=== PATIENT | male | born 1965 | race Caucasian/White ===

== ENCOUNTER 2016-09-30 00:59 | Inpatient (IN) ==
[2016-09-30] MEDS ORDERED: DUONEB (A & A) INH ONE ×2 (01:13→06:28)
[2016-09-30] MEDS ORDERED: ASPIRIN PO ONE (01:15)
[2016-09-30 02:03] LABS: MANUAL DIFF NEEDED? NO
[2016-09-30 02:06] LABS: BASO% 0.6 % (0.0-0.8); EOS# 0.23 X1000 (0.0-0.7); EOS% 2.6 % (0.0-10.0); HEMATOCRIT 37.7 % (42.0-52.0); HEMOGLOBIN 12.9 g/dL (14.0-18.0); IMM GRAN# 0.11 X1000 (0.0-0.04); IMM GRAN% 1.2 % (0.0-0.5); LYMPH# 0.86 X1000 (1.2-3.4); LYMPH% 9.7 % (20.5-51.1); MCH 31.2 PG (27-31); MCHC 34.2 g/dL (33-37); MCV 91.3 FL (81-99); MONO# 0.15 X1000 (0.11-0.59); MONO% 1.7 % (1.7-9.3); MPV 10.8 FL (7.4-10.4); NEUT% 84.2 % (42.2-75.2); PLT 268 X1000 (130-400); RBC 4.13 XMIL (4.7-6.1)
[2016-09-30 02:26] LABS: ALBUMIN 3.5 g/dL (3.5-5.0); CALCIUM 8.4 mg/dL (8.8-10.2); POTASSIUM 4.7 mmol/L (3.5-5.1); TOTAL BILIRUBIN 0.23 mg/dL (0.20-1.00); TOTAL PROTEIN 7.3 g/dL (6.3-8.3)
[2016-09-30] MEDS ORDERED: HUMALOG SUBQ ONE (02:39)
--- NOTE | 2016-09-30 02:42 | PROVIDER DOCUMENTATION ---
This chart was entered by Gill Bolaños Scribe, acting as scribe for Nathanael Stanley MD. HPI-General Adult - General Chief Complaint: General Adult Stated Complaint: "JUST DOESN'T FEEL WELL" Time Seen by Provider: 09/30/16 01:08 Source: patient Allergies/Adverse Reactions: Patient Allergies Allergy/AdvReac Type Severity Reaction Status Date / Time Penicillins Allergy Mild HIVES Verified 09/30/16 01:10 Sulfa (Sulfonamide Allergy Mild HIVES Verified 09/30/16 01:10 Antibiotics) [Sulfa(Sulfonamide Antibiotics)] Home Medications: Home Medication List Medication Instructions Recorded Confirmed Last Taken Type Albuterol Sulfate [Albuterol 1 - 2 puff IH 3-4XDAY PRN PRN #1 06/25/14 08/24/16 Unknown Rx Sulfate Hfa] [email or web address] Clonidine HCl 0.2 mg PO Q6-8H PRN PRN #60 tablet 06/25/14 08/24/16 08/20/14 12: 00 Rx Lisinopril/Hydrochlorothiazide 1 each PO DAILY #30 tablet 06/25/14 08/24/16 09:00 Rx [Lisinopril-Hctz 10-12.5 mg Tab] Nitroglycerin [Nitroglycerin 0.2 1 each TD DAILY #30 patch.td24 06/25/14 Unknown Rx mg/Hr] Hydrocodone/Acetaminophen [[place] 1 each PO Q4-6H PRN PRN #20 tablet 08/21/14 Unknown Rx 5-325 Tablet] Gabapentin 300 mg PO TID #90 capsule 08/24/16 Unknown Rx Lisinopril/Hydrochlorothiazide 1 each PO DAILY #30 tablet 08/24/16 Unknown Rx [Lisinopril-Hctz 20-12.5 mg Tab] Metformin [Glucophage] 500 mg PO BID CC #60 tablet 08/24/16 Unknown Rx - History of Present Illness -Gen Adult Nature of Presenting Problems: 50 year old M presents to the ED with a cc of pain in chest with coughing and breathing, pain in his buttocks, and pain in his penile area. Location of Pain/Injury: reports: chest, genitalia, other (buttocks) Quality of Pain: reports: aching Severity: reports: mild Onset/Duration: reports: unsure Timing: reports: still present Modifying Factors: worse with: breathing, coughing Associated Symptoms: reports: chest pain, cough Similar Symptoms Previously?: No Recently seen or treated by another doctor?: No Review of Systems - Adult - REVIEW OF SYSTEMS - ADULT Constitutional: denies: chills, fever Eyes: reports: no symptoms reported Ears, Nose, Mouth & Throat: reports: no symptoms reported Cardiovascular: reports: chest pain. denies: palpitations Respiratory: reports: cough. denies: shortness of breath Gastrointestinal: denies: abdominal pain, nausea, vomiting Genitourinary: denies: dysuria, hematuria Musculoskeletal: denies: bone pain, muscle aches, muscle weakness Integumentary: denies: skin sores/ulcer, skin thickening Neurological: reports: no symptoms reported Psychiatric: reports: no symptoms reported Endocrine: reports: no symptoms reported Hematologic/Lymphatic: reports: no symptoms reported Allergic/Immunologic: reports: no symptoms reported All Other Systems: Reviewed and Negative Past History - Adult - PAST MEDICAL HISTORY-ADULT Review of Records: reports: Nursing Assessment Review, Medications Reviewed Major Childhood Illnesses: reports: denies history Cardiovascular: reports: CHF, HTN, MA Respiratory: reports: COPD Gastrointestinal: reports: denies history Obstetrical/Gynecological: reports: denies history Genitourinary: reports: denies history Musculoskeletal: reports: denies history Neurological: reports: denies history Psychiatric: reports: anxiety Endocrine/Immune: reports: Diabetes Other Conditions: reports: denies history - PRIOR SURGERIES/PROCEDURES Surgical/Procedure History: reports: orthopedic (extremity) (right clavical), other (cervical spine, lumbar spine, colon rescection) - IMMUNIZATION STATUS Childhood Immunizations: See Nurse Assessment Flu Vaccine: See Nurse Assessment - FAMILY HISTORY Family History: reviewed, not pertinent - SOCIAL HISTORY Smoking: cigarettes Provider spent 3-5 mins advising pt. on dangers of tobacco.: Discussed manners to quit use, and f/u contacts for add'l counseling. Substance Use: none/never Alcohol Use Frequency: never Physical Exam-General - PHYSICAL EXAM-ADULT Initial Vital Signs Reviewed: Yes - CONSTITUTIONAL General Appearance: appears well, alert, no apparent distress, obese - RESPIRATORY Respiratory: wheezing - CARDIOVASCULAR Cardiovascular: normal peripheral pulses, regular rate, rhythm, no edema - GASTROINTESTINAL (ABDOMEN) Abdominal Exam: normal bowel sounds, non tender, soft - MUSCULOSKELETAL Back Exam: normal inspection, no CVA tenderness, no vertebral tenderness - SKIN Integumentary: normal color, normal turgor, warm/dry - PSYCHIATRIC Psych/Mental Status: normal mood/affect, normal thought content, normal thought process, oriented x 3 Progress - PLAN OF CARE/RESULTS Progress/Plan/Lab Results: Vital Signs - 8 hr 09/30/16 01:04 Temperature 98.4 F Pulse Rate 107 H Respiratory Rate 18 Blood Pressure 110/59 O2 Sat by Pulse Oximetry 92 L Result Diagrams: 09/30/16 01:54 09/30/16 01:54 - REASSESSMENT Reassessment #1 Time Reassessed: 02:40 (when confronted with his elevated glucose he admitted that he did not take his metformin tonight, even though he insists he has some! ) Status: unchanged Reassessment #2 Time Reassessed: 05:47 (2 hours after his 20 units of Humalog is glucose is still greather than 500) Status: unchanged - EKG 1 Time of EKG reading by physician:: 02:12 EKG Read and Signed by:: Nathanael Stanley EKG Interpretation (*Must complete 3 of following elements*): Normal Rate: 114 Rhythm: sinus tachycardia [place]: normal - XRAY 1 XRAY Study: Chest Impression: Normal XRAY Interpretation: normal: Dr. Stanley(ER MD) Departure - Departure Date of Disposition Decision: 09/30/16 Time of Disposition Decision: 05:48 DIAGNOSIS: Hyperglycemia, Non compliance w medication regimen Disposition: ADMITTED INPATIENT 09 Certified Medical Emergency: Emergent Condition: Fair Referrals and Follow-Ups: None,PCP [Primary Care Provider] - - Critical Care Note This patient required my direct & personal management of CC.: No This chart was documented by the indicated scribe, (Gill Bolaños Scribe) and accurately reflects the services I performed and decisions made by me, Nathanael Stanley MD, as attested by the provider's signature.
[2016-09-30] MEDS ORDERED: GLUCOPHAGE PO ONE (04:41)
[2016-09-30] MEDS ORDERED: VALIUM PO ONE (05:03)
--- NOTE | 2016-09-30 05:22 | EKG Report ---
Test Performed on : 09/30/2016 02:12:03 AM Test Reason : cp Blood Pressure : / mmHG Vent. Rate : 114 BPM Atrial Rate : 114 BPM P-R Int : 154 ms QRS Dur : 098 ms QT Int : 344 ms P-R-T Axes : 009 048 012 degrees QTc Int : 474 ms Sinus tachycardia. Otherwise normal ECG When compared with ECG of 25-JUN-2014 20:45, No significant change was found Unconfirmed Result
[2016-09-30] MEDS ORDERED: NS 1,000 ML IV ONE (05:43)
--- NOTE | 2016-09-30 06:21 | Diag Imaging Result Doc PS360 ---
EXAM: CHEST-PORTABLE HISTORY: cough TECHNIQUE: COMPARISON: 07/08/2014 FINDINGS: The lungs are well expanded. The heart is not enlarged. The vessels are not distended. No pleural effusions identified. There has been prior surgery to the lower neck and right clavicle. There are several old right rib fractures. No consolidation. IMPRESSION: No pneumonia. Follow-up films may be beneficial. Electronically signed by Thiago Dhaliwal 09/30/2016 6:18 AM
[2016-09-30 06:55] LABS: ALLEN TEST YES; BE -1.3 mmoll (-3.0-3.0); BLOOD TYPE ARTERIAL; DRAW SITE R RADIAL; METHB 0.8 % (0.0-1.5); O2(CT) 16.3 mL/dL (15.0-23.0); PCO2(98.6) 49 mmHg (35-45); PO2(98.6) 86 mmHg (60-100); SAMPLE BLOOD; SAO2 99.1 % (95.0-100.0); THB 12.2 g/dL (11.5-17.4); pH(98.6) 7.32 (7.35-7.45)
[2016-09-30 06:56] LABS: MODALITY CANNULA
[2016-09-30] MEDS: HUMULIN R 100 UNIT in NS 100 ML IV SCH ×2 (06:57→14:10)
--- NOTE | 2016-09-30 07:26 | HISTORY AND PHYSICAL ---
CHIEF COMPLAINT: Was not feeling well and hyperglycemia. Briefly, this is a homeless gentleman with a history of diabetes. Reportedly is suppose to be on metformin but has not been on metformin. He reports that he takes metformin but has not been. He came in and blood sugar was over 700 when he came in. He was tachycardic, a little hypoxic as well, and initially attempted to control it in the ER. He was given 20 units of lispro. He was given a gram of metformin. Initially it came down to below 450, and now it went back to above 500. Workup in the ER is consistent with hyperglycemia. He is non-ketotic and there is no diabetic ketoacidosis at this point. PAST MEDICAL HISTORY: 1. Reportedly diabetes. 2. Hypertension. 3. Chronic obstructive pulmonary disease. 4. Reported heart failure. 5. Noncompliance. PAST SURGICAL HISTORY: Denies. SOCIAL HISTORY: He does smoke up to a pack a day. He has done that for 20 years. No alcohol. No drugs. ALLERGIES: Penicillins and sulfa. REVIEW OF SYSTEMS: Positive for polydipsia, polyuria, polyphagia. The patient does not report any weight changes. Does report some chest pain though and shortness of breath. All other systems reviewed and are negative. PHYSICAL EXAMINATION: VITAL SIGNS: Blood pressure 110/59, respiratory 23, temp was 95 degrees, 93 on 4 L. GENERAL EXAMINATION: A well-developed male, in no acute distress. Some mild respiratory distress. HEAD EXAMINATION: Normocephalic, atraumatic. EYE EXAMINATION: Pupils equal, round, reactive to light. Extraocular movements were intact. EAR/NOSE/THROAT EXAMINATION: Had moist mucous membranes. NECK EXAMINATION: Supple. CARDIOVASCULAR EXAMINATION: Regular rate and rhythm. No murmurs, gallops, or rubs. PULMONARY EXAMINATION: Bilateral breath sounds. Clear to auscultation. GASTROINTESTINAL: Soft, nontender, nondistended. Bowel sounds are positive. EXTREMITIES: No clubbing or cyanosis. LYMPHATICS: No peripheral edema. NEUROLOGICAL EXAMINATION: Nonfocal. SKIN EXAMINATION: He had multiple plaques on his extensor surfaces. LABORATORY DATA: White count 8. Hemoglobin and hematocrit 12 and 37. Platelets 268,000. Sodium 123, but his glucose was 710. Carbon dioxide 24. Pro-B-type natriuretic peptide 342. Chest x- ray was reportedly clear. PROBLEM LIST: This is a 50-year-old male presenting with uncontrolled diabetes. Not in diabetic ketoacidosis. Not quite nonketotic. Chronic obstructive pulmonary disease exacerbation. 1. Diabetes, uncontrolled. I am going to go ahead and institute an insulin drip just because he is persistently hyperglycemic, at least until we can get it under a little bit better control. I do not think metformin is going to be sufficient enough to control his medications. We will follow. We will gently hydrate because of his history of heart failure. 2. Chronic obstructive pulmonary disease exacerbation. We will continue breathing treatments. At this point there is no evidence of infection. Steroids may be beneficial , but he still hyperglycemic. I think were going to try and just use the breathing treatments and follow clinically. 3. Congestive heart failure. We will need to re-evaluate that. I am going to go through his records and see if he has had an echo's recently; otherwise, we will repeat that and just get a baseline level of function. DISPOSITION: Will be difficult, as he is not compliant with his medications and he is limited resource. We will try to avoid using held patient insulin because it will be difficult to manage in his current social situation, but we will have to adjust his medications accordingly. cc: Andriy Ramirez MD MTDD
[2016-09-30 07:52] LABS: HEMOGLOBIN A1C 14.5 % (4.8-6.0)
[2016-09-30] MEDS ORDERED: ZOFRAN IV PRN ×2 (08:03→09:09)
[2016-09-30] MEDS ORDERED: HUMALOG SUBQ SCH (08:03)
[2016-09-30] MEDS ORDERED: ATIVAN IV PRN (08:19)
[2016-09-30] MEDS ORDERED: TYLENOL PR PRN (09:09)
[2016-09-30] MEDS ORDERED: MAGNESIUM SULFATE 2 GM/S.W.I. 2 GM/50 ML IVPB IV PRN (09:09)
[2016-09-30] MEDS: NS 1,000 ML IV SCH ×2 (10:02→17:12)
[2016-09-30] MEDS: LOVENOX SUBQ SCH (10:02)
[2016-09-30] MEDS: PRILOSEC PO SCH (10:04)
[2016-09-30 10:11] LABS: ALBUMIN 3.4 g/dL (3.5-5.0); CALCIUM 8.7 mg/dL (8.8-10.2); POTASSIUM 4.3 mmol/L (3.5-5.1)
[2016-09-30 11:45] LABS: URINE MICRO REVIEW NEEDED? NO; URINE SOURCE CATH
[2016-09-30 11:50] LABS: BILIRUBIN URINE NEGATIVE (NEGATIVE); BLOOD URINE NEGATIVE (NEGATIVE); COLOR YELLOW; GLUCOSE URINE >1000 mg/dL (NEGATIVE); LEUKOCYTES URINE MODERATE (NEGATIVE); NITRITE URINE POSITIVE (NEGATIVE); PH URINE 5.5; PROTEIN URINE NEGATIVE (NEGATIVE); SP GRAVITY URINE 1.022; TURBIDITY URINE HAZY (CLEAR); UR EPITHELIAL CELLS <10 /HPF (<10); URINE BACTERIA 4+ /HPF; URINE CULTURE NEEDED? YES; URINE RBC <10 /HPF (<10); URINE WBC TNTC /HPF (<10); UROBILINOGEN URINE NORMAL (NORMAL)
[2016-09-30] MEDS: DILAUDID IV PRN ×2 (12:40→22:26)
[2016-09-30 12:54] LABS: CALCIUM 8.6 mg/dL (8.8-10.2); MAGNESIUM 2.2 mg/dL (1.5-2.7); POTASSIUM 4.1 mmol/L (3.5-5.1)
[2016-09-30] MEDS: ROCEPHIN 1 GM/NS 1 GM/50 ML IVPB IV SCH (13:00)
[2016-09-30 13:35] LABS: ALLEN TEST YES; BE 2.3 mmoll (-3.0-3.0); BLOOD TYPE ARTERIAL; DRAW SITE L RADIAL; O2(CT) 14.4 mL/dL (15.0-23.0); PCO2(98.6) 49 mmHg (35-45); SAMPLE BLOOD; SAO2 86.5 % (95.0-100.0); THB 12.3 g/dL (11.5-17.4); pH(98.6) 7.37 (7.35-7.45)
[2016-09-30 13:39] LABS: MODALITY ROOM AIR; PO2(98.6) 45 mmHg (60-100)
[2016-09-30] MEDS ORDERED: CALMOSEPTINE OINTMENT MISC ONE (14:27)
[2016-09-30] MEDS ORDERED: CALMOSEPTINE OINTMENT MISC PRN (14:39)
[2016-09-30] MEDS ORDERED: LEVEMIR SUBQ ONE (17:15)
--- NOTE | 2016-09-30 20:58 | ECHO REPORT ---
ORDER DATE: 09/30/2016 SUMMARY: 1. Technically difficult study due to limited acoustic window quality. 2. Aortic valve was trileaflet and opens normally on 2-dimensional images. Mitral, tricuspid, and pulmonic valves are without structural abnormality. Aortic root is normal in size. 3. Normal left ventricular dimensions suggested on 2-dimensional images. Estimated left ejection fraction appears to be at least 70%. No regional wall motion abnormalities are evident. Left atrium is mildly enlarged. Right atrium and right ventricle are normal in size with normal right ventricular systolic function. 4. No pericardial effusion. 5. Appearance of inferior vena cava suggests normal central venous pressure. CONCLUSIONS: 1. Technically difficult study. 2. No significant valvular abnormality. 3. Estimated left ejection fraction of at least 70% without wall motion abnormality evident. 4. Mild left atrial enlargement. cc: MD Andriy Buchanan MD
[2016-09-30] MEDS: HUMALOG SUBQ SCH ×2 (22:20→22:35)
[2016-09-30] MEDS: TYLENOL PO PRN (22:26)
[2016-10-01] MEDS: HUMALOG SUBQ SCH ×4 (01:38→13:39)
[2016-10-01] MEDS: NS 1,000 ML IV SCH ×3 (01:39→11:16)
[2016-10-01] MEDS: TYLENOL PO PRN ×3 (04:41→23:31)
[2016-10-01 05:36] LABS: HEMATOCRIT 38.7 % (42.0-52.0); HEMOGLOBIN 12.8 g/dL (14.0-18.0); MCHC 33.1 g/dL (33-37); MCV 93.7 FL (81-99); MPV 10.9 FL (7.4-10.4); RBC 4.13 XMIL (4.7-6.1)
[2016-10-01 05:55] LABS: AGAP 11; BUN 29 mg/dL (8-22); CALCIUM 8.5 mg/dL (8.8-10.2); CHLORIDE 97 mmol/L (98-107); COSMO 290; POTASSIUM 4.1 mmol/L (3.5-5.1); SODIUM 137 mmol/L (136-145); TCO2 29 mmol/L (25-35)
[2016-10-01 06:16] LABS: MAGNESIUM 2.1 mg/dL (1.5-2.7)
[2016-10-01] MEDS: PRILOSEC PO SCH (06:16)
[2016-10-01] MEDS: DILAUDID IV PRN ×2 (07:29→20:02)
--- NOTE | 2016-10-01 08:41 | Diag Imaging Result Doc PS360 ---
EXAM: CHEST-PORTABLE INDICATION: dyspnea TECHNIQUE: One view COMPARISON: 09/30/2016 FINDINGS: The lungs appear to be grossly clear. There are no new consolidations identified. Cardiac silhouette is stable. IMPRESSION: Stable chest. Electronically signed by Kush Soto 10/01/2016 8:39 AM
[2016-10-01] MEDS ORDERED: LEVEMIR SUBQ SCH ×2 (09:00)
[2016-10-01] MEDS ORDERED: INSULIN PEN NEEDLES ONE (09:29)
[2016-10-01] MEDS: MERREM 500 MG in NS 50 ML IV SCH ×2 (09:33→16:12)
[2016-10-01] MEDS: ROCEPHIN 1 GM/NS 1 GM/50 ML IVPB IV SCH (11:16)
[2016-10-01] MEDS: LOVENOX SUBQ SCH (11:59)
[2016-10-01] MEDS: HUMULIN R SUBQ SCH ×2 (16:11→20:03)
--- NOTE | 2016-10-01 17:38 | OPERATIVE NOTE ---
PROCEDURE DATE: 10/01/2016 PREOPERATIVE DIAGNOSIS: Left gluteal decubitus ulcer with infection. POSTOPERATIVE DIAGNOSIS: Left gluteal decubitus ulcer with infection. PROCEDURE: Debridement of skin, subcutaneous tissue less than 20 square cm of left buttocks nonhealing wound. SURGEON: Jarocho Machado MD. ESTIMATED BLOOD LOSS: 3 mL. COMPLICATIONS: None apparent. FINDINGS: The wound had necrotic slough of the superficial skin and soft tissues. It measured approximately 2 cm x 101/2 cm. There is no deep abscess appreciated. TECHNIQUE: He was rolled on his right side. The wound was cleansed with Betadine. A 15 blade was used to sharply excise the necrotic tissue and slough down to healthier bleeding edges in the base. The wound was cleansed with a Vashe wound cleanser and covered with gauze. There are no apparent complications. He tolerated this well. Of note, I did inspect his left groin. There is an area of induration with an open small draining spot that now has no fluctuance remaining and no significant drainage. We will keep an eye on this for possible future I and D if needed. cc: Jarocho Machado MD
[2016-10-01] MEDS: LEVEMIR SUBQ SCH (20:03)
[2016-10-02] MEDS: MERREM 500 MG in NS 50 ML IV SCH ×3 (02:12→16:10)
[2016-10-02] MEDS: DILAUDID IV PRN ×4 (03:56→22:49)
[2016-10-02 05:44] LABS: MANUAL DIFF NEEDED? NO
[2016-10-02 05:54] LABS: BASO% 0.5 % (0.0-0.8); EOS# 0.17 X1000 (0.0-0.7); EOS% 1.9 % (0.0-10.0); HEMATOCRIT 35.7 % (42.0-52.0); HEMOGLOBIN 11.6 g/dL (14.0-18.0); IMM GRAN# 0.06 X1000 (0.0-0.04); IMM GRAN% 0.7 % (0.0-0.5); LYMPH% 22.8 % (20.5-51.1); MCH 30.9 PG (27-31); MCHC 32.5 g/dL (33-37); MCV 94.9 FL (81-99); MONO# 1.26 X1000 (0.11-0.59); MONO% 14.4 % (1.7-9.3); MPV 10.8 FL (7.4-10.4); NEUT% 59.7 % (42.2-75.2); PLT 195 X1000 (130-400); RBC 3.76 XMIL (4.7-6.1)
[2016-10-02 06:15] LABS: AGAP 11; BUN 18 mg/dL (8-22); CALCIUM 8.2 mg/dL (8.8-10.2); CHLORIDE 98 mmol/L (98-107); COSMO 283; POTASSIUM 4.6 mmol/L (3.5-5.1); SODIUM 137 mmol/L (136-145); TCO2 28 mmol/L (25-35)
[2016-10-02] MEDS: PRILOSEC PO SCH (06:20)
[2016-10-02] MEDS: HUMULIN R SUBQ SCH ×4 (06:20→21:03)
[2016-10-02] MEDS: LEVEMIR SUBQ SCH ×2 (08:06→21:04)
[2016-10-02] MEDS: LOVENOX SUBQ SCH (08:06)
[2016-10-02] MEDS ORDERED: VITAMIN D PO SCH (09:00)
[2016-10-02] MEDS: ROCEPHIN 1 GM/NS 1 GM/50 ML IVPB IV SCH (11:02)
--- NOTE | 2016-10-02 15:51 | PROGRESS NOTE ---
DATE: 10/02/2016 SUBJECTIVE: The patient is resting comfortably in bed. He complains of pain in his left buttocks. OBJECTIVE: Vital Signs: Temperature 98.5 degrees, blood pressure 126/45, heart rate 86, respirations 16, O2 saturation is 94% on room air. General: This is a morbidly obese male, lying in bed, in no acute distress. Head: Normocephalic, atraumatic. Heart: S1, S2. Normal. Regular rate and rhythm. Lungs: Clear to auscultation bilaterally. No wheezes. No rales. No rhonchi. Abdomen: Positive bowel sounds. Soft, nontender, nondistended. Extremities: There is + 1 edema. No cyanosis. No calf tenderness. Buttock: There is a dressing present on the left buttock. Neurologic: The patient is alert and oriented x3. LABS: White blood cell count 8.7, hemoglobin 11, hematocrit 37, platelets 195,000. Sodium 137, potassium 4.6, chloride 98, CO2 28, BUN 18, creatinine 0.9, glucose 221, calcium 8.2. ASSESSMENT AND PLAN: 1. Status post left gluteal decubitus ulcer debridement. Continue with IV antibiotic therapy and wound care as directed by the general surgeon. 2. Uncontrolled insulin-dependent diabetes mellitus. Will increase the Levemir dosage to 40 units subcutaneous twice a day plus sliding scale insulin. 3. Urinary tract infection secondary to Klebsiella. Continue on Merrem. 4. Vitamin D deficiency. Continue vitamin D replacement. 5. Morbid obesity. Aware. 6. Deep vein thrombosis prophylaxis. Continue on Lovenox. 7. Continue with physical therapy. cc: María Quiroga MD
[2016-10-03] MEDS: MERREM 500 MG in NS 50 ML IV SCH ×3 (01:01→17:04)
--- NOTE | 2016-10-03 03:46 | PROGRESS NOTE ---
DATE: 10/01/2016 SUBJECTIVE: The patient is sitting at the edge of the bed. He states that he feels okay today and does have a low-grade temperature. OBJECTIVE: Vital Signs: Temperature 99.6 degrees, blood pressure 130/68 heart rate 96, respirations 18, O2 saturation 96% on 2 L nasal cannula. General: This is a morbidly obese male sitting at the edge of the bed in no acute distress. Head: Normocephalic , atraumatic. Heart: S1, S2. Normal. Regular rate and rhythm. Lungs: Clear to auscultation bilaterally. Abdomen: Positive bowel sounds. Soft, obese, nontender, nondistended. Extremities: No edema. No cyanosis. No calf tenderness. Buttock: The patient does have an ulceration on the left buttock. Neuro: The patient is alert and oriented x3. LABS: White blood cell count 11, hemoglobin 12, hematocrit 38, platelets 217, 000. Sodium 137, potassium 4.1, chloride 97, CO2 29, BUN 29, creatinine 1.1, glucose 284, calcium 8.5. ASSESSMENT AND PLAN: 1. Uncontrolled insulin-dependent diabetes mellitus. Will increase the long- acting insulin dosage to 40 units twice a day. Will change the patient to regular sliding insulin for coverage. 2. Left buttock wound. General Surgery has been consulted for possible debridement. Continue with IV antibiotic therapy. 3. Urinary tract infection. Continue on IV antibiotic therapy. Will follow up on the urine culture. 4. Morbid obesity. Aware. 5. Hypertension. Controlled. 6. Deep vein thrombosis prophylaxis. Continue on Lovenox. cc: María Quiroga MD MTDD
[2016-10-03] MEDS: DILAUDID IV PRN ×2 (04:08→08:39)
[2016-10-03 05:52] LABS: BASO% 0.3 % (0.0-0.8); EOS# 0.34 X1000 (0.0-0.7); EOS% 4.9 % (0.0-10.0); HEMATOCRIT 34.2 % (42.0-52.0); HEMOGLOBIN 10.9 g/dL (14.0-18.0); LYMPH# 1.79 X1000 (1.2-3.4); LYMPH% 25.6 % (20.5-51.1); MANUAL DIFF NEEDED? YES; MCHC 31.9 g/dL (33-37); MCV 97.2 FL (81-99); MONO# 1.07 X1000 (0.11-0.59); MONO% 15.3 % (1.7-9.3); MPV 10.7 FL (7.4-10.4); NEUT% 53.9 % (42.2-75.2); PLT 182 X1000 (130-400); RBC 3.52 XMIL (4.7-6.1)
[2016-10-03 05:56] LABS: AGAP 9; BUN 17 mg/dL (8-22); CALCIUM 8.5 mg/dL (8.8-10.2); CHLORIDE 99 mmol/L (98-107); COSMO 280; POTASSIUM 4.2 mmol/L (3.5-5.1); SODIUM 137 mmol/L (136-145); TCO2 29 mmol/L (25-35)
[2016-10-03] MEDS: HUMULIN R SUBQ SCH ×4 (06:00→22:08)
[2016-10-03] MEDS: PRILOSEC PO SCH (06:01)
[2016-10-03] MEDS ORDERED: INSULIN PEN NEEDLES ONE (08:08)
[2016-10-03 08:38] LABS: BANDS 4 % (0-1); EOS 2 % (1-10); LYMPHS 22 % (21-51); MONO 6 % (1-9)
[2016-10-03 08:39] LABS: HYPOCHROM 1+
[2016-10-03] MEDS: LOVENOX SUBQ SCH (08:39)
[2016-10-03] MEDS: LEVEMIR SUBQ SCH ×2 (08:40→22:21)
[2016-10-03] MEDS: NORCO-7.5 PO PRN ×3 (14:20→22:34)
[2016-10-03] MEDS: NEURONTIN PO SCH (22:21)
[2016-10-04] MEDS: MERREM 500 MG in NS 50 ML IV SCH ×3 (02:39→17:01)
[2016-10-04] MEDS: NORCO-7.5 PO PRN ×4 (04:11→21:56)
[2016-10-04] MEDS: PRILOSEC PO SCH (06:01)
[2016-10-04] MEDS: HUMULIN R SUBQ SCH ×4 (06:01→21:57)
[2016-10-04 06:30] LABS: HEMATOCRIT 39.1 % (42.0-52.0); HEMOGLOBIN 12.5 g/dL (14.0-18.0); MCH 30.8 PG (27-31); MCV 96.3 FL (81-99); MPV 10.7 FL (7.4-10.4); RBC 4.06 XMIL (4.7-6.1)
[2016-10-04 06:41] LABS: AGAP 9; BUN 17 mg/dL (8-22); CALCIUM 9.1 mg/dL (8.8-10.2); CHLORIDE 98 mmol/L (98-107); COSMO 283; POTASSIUM 4.7 mmol/L (3.5-5.1); SODIUM 138 mmol/L (136-145); TCO2 31 mmol/L (25-35)
[2016-10-04] MEDS ORDERED: INSULIN PEN NEEDLES ONE (07:25)
[2016-10-04] MEDS: NEURONTIN PO SCH ×3 (09:04→21:56)
[2016-10-04] MEDS: LOVENOX SUBQ SCH (09:04)
[2016-10-04] MEDS: LEVEMIR SUBQ SCH ×2 (09:09→21:57)
--- NOTE | 2016-10-04 13:46 | PROGRESS NOTE ---
DATE: 10/04/2016 SUBJECTIVE: There were no acute events overnight. OBJECTIVE: Vital signs: He is afebrile. Vital signs are stable. General: He is alert. He is oriented x3. No acute distress. Skin: The left buttock ulcer is healing. There is some slough on top. No abscess or purulent drainage at this time. There is minimal erythema around it. The left groin draining wound appears to have resolved. I do not find any fluctuant infected area in the left groin anymore. LABORATORY: White blood cell count 7.4. ASSESSMENT/PLAN: A 50-year-old male with decubitus ulcer of the left buttock. It has been debrided. It is slowly healing. Going forward I think placing some Santyl on the wound and covering with a Band-Aid once a day would be adequate. He does need to stay off of his bottom for any prolonged period of time. He can follow up with me in the [facility] [place] after discharge for further wound care. cc: Jarocho Machado MD MTDD
--- NOTE | 2016-10-04 17:49 | PROGRESS NOTE ---
DATE: 10/04/2016 SUBJECTIVE: Patient has no focal complaints. OBJECTIVE: Blood pressure 132/59, heart rate 69, respiratory rate 20, temperature 98.4 degrees, 96% on room air.Cardiovascular: Regular rate and rhythm. Pulmonary: Bilateral breath sounds. Clear to auscultation. GI: Soft, nontender, nondistended. Bowel sounds are positive. LABORATORY DATA: White count 7, hemoglobin and hematocrit 12 and 39. CMP was okay. Sugar is 210, on average still fairly high, 280, 221, 302. PROBLEM LIST: 1. Hyperglycemia and uncontrolled diabetes. We will bump up his Levemir to 45 b.i.d. 2. Klebsiella UTI. He is on Merrem. 3. Gluteal decubitus ulcer. Continue IV antibiotics and wound care. 4. Morbid obesity. Continue to follow. 5. CHF appears to be compensated. EF is pretty unremarkable so I am not sure if he truly has significant CHF. I am going to DC his Dias and we will follow. I think we are getting close to discharge. It will be dependent on surgical followup but plan of discharge potentially tomorrow if stable. cc: Andriy Ramirez MD
[2016-10-05] MEDS: MERREM 500 MG in NS 50 ML IV SCH ×4 (02:19→17:38)
[2016-10-05] MEDS: NORCO-7.5 PO PRN ×4 (02:39→18:36)
[2016-10-05] MEDS: PRILOSEC PO SCH ×2 (05:36→06:03)
[2016-10-05] MEDS: HUMULIN R SUBQ SCH ×4 (06:58→21:21)
[2016-10-05 07:04] LABS: AGAP 12; BUN 16 mg/dL (8-22); CALCIUM 9.2 mg/dL (8.8-10.2); CHLORIDE 95 mmol/L (98-107); COSMO 285; POTASSIUM 4.5 mmol/L (3.5-5.1); SODIUM 139 mmol/L (136-145); TCO2 32 mmol/L (25-35)
[2016-10-05] MEDS: SANTYL OINT TOP SCH (08:40)
[2016-10-05] MEDS: LOVENOX SUBQ SCH (09:05)
[2016-10-05] MEDS: NEURONTIN PO SCH ×3 (09:05→21:21)
[2016-10-05] MEDS: LEVEMIR SUBQ SCH (09:06)
[2016-10-05] MEDS: GLUCOPHAGE PO SCH ×2 (12:06→16:58)
--- NOTE | 2016-10-05 18:14 | PROGRESS NOTE ---
DATE: 10/05/2016 SUBJECTIVE: Patient has no focal complaints. OBJECTIVE: Vital signs: Blood pressure 128/72, heart rate 76, respiratory rate 18, temperature 98.6 degrees, 98% on room air. Cardiovascular: Regular rate and rhythm. Pulmonary: Bilateral breath sounds. Clear to auscultation. GI: Soft, nontender, nondistended. Bowel sounds are positive. LABORATORY DATA: Normal today. Fasting blood sugar still elevated 206. His sugars still have run high, 189, 206 and were elevated from the day before. PROBLEM LIST: 1. Type 2 diabetes. Noncompliant. Still difficult to control on insulin. He is getting Levemir here, which I think is going to be difficult to do as an outpatient, but we will likely convert to Lantus or 70-30. He is getting 45 units b.i.d. 2. Decubitus ulcer. We will continue empiric antibiotics. He is on Merrem and we will continue to follow very closely. Surgery is following, likely discharge soon. 3. Klebsiella urinary tract infections on Merrem and likely discharge on Keflex or Levaquin. DISPOSITION: He is homeless which is going to make insulin difficult he states. He does have access to refrigeration if insulin is required. I really do not see how were going to be able to control his blood sugars without immediate readmission with just oral agents, so we will have to follow closely. I will discuss with discharge team and we will go from there. cc: Andriy Ramirez MD
[2016-10-05] MEDS: HUMULIN 70/30 SUBQ SCH (21:22)
[2016-10-06] MEDS: MERREM 500 MG in NS 50 ML IV SCH ×3 (02:22→17:26)
[2016-10-06] MEDS: PRILOSEC PO SCH ×2 (05:27→06:58)
[2016-10-06] MEDS: NORCO-7.5 PO PRN ×4 (05:28→20:38)
[2016-10-06] MEDS: HUMULIN R SUBQ SCH ×4 (06:02→21:09)
[2016-10-06] MEDS: GLUCOPHAGE PO SCH ×2 (08:33→18:06)
[2016-10-06] MEDS: NEURONTIN PO SCH ×3 (08:33→16:55)
[2016-10-06] MEDS: LOVENOX SUBQ SCH (08:33)
[2016-10-06] MEDS: SANTYL OINT TOP SCH (08:34)
[2016-10-06] MEDS: HUMULIN 70/30 SUBQ SCH ×3 (08:35→21:09)
[2016-10-06 09:34] LABS: HIV ANTIBODY SCREEN SEE COMMENTS
[2016-10-06 10:23] LABS: HEPATITIS PROFILE ACUTE SEE COMMENTS
[2016-10-06] MEDS: DILAUDID IV PRN ×2 (16:55→22:34)
--- NOTE | 2016-10-06 18:48 | PROGRESS NOTE ---
DATE: 10/06/2016 SUBJECTIVE: Patient has no focal complaints. OBJECTIVE: Blood pressure 164/118, heart rate is 70, respiratory 16, temperature 98.6 degrees. General: Well-developed male in no acute distress. Head: Normocephalic, atraumatic. Eyes: Pupils equal, round, reactive to light. Extraocular movements were intact. Ear/nose/throat: Moist mucous membranes. Neck: Supple. Cardiovascular: Regular rate and rhythm. Pulmonary: Bilateral breath sounds. Clear to auscultation. GI: Soft, nontender, nondistended. Bowel sounds are positive. PROBLEM LIST: 1. Diabetes, noncompliant, poorly controlled. I switched him to 70/30 just because I wanted to increase compliance. Levemir twice a day I think it is okay but he does not have any short- acting medications and sugar seemed to be fairly well controlled. So, I think I may end up discharging him on that if he uses at all. It is a difficult situation because he is homeless but he says he does have access to refrigeration for his insulin. 2. Decubitus ulcers. He is on Merrem. I am waiting for Surgery to make any final recommendations before discharge. 3. Klebsiella UTI. He is currently on Merrem. Can likely discharge on Keflex or Levaquin. 4. Disposition. I think he will have to go home tomorrow and that is where we are. cc: Andriy Ramirez MD
[2016-10-06] MEDS ORDERED: LANTUS SUBQ SCH (21:00)
[2016-10-07] MEDS: NORCO-7.5 PO PRN ×3 (00:23→09:46)
[2016-10-07] MEDS: MERREM 500 MG in NS 50 ML IV SCH ×2 (01:57→09:44)
[2016-10-07] MEDS: PRILOSEC PO SCH (06:18)
[2016-10-07] MEDS: HUMULIN R SUBQ SCH ×2 (06:18→11:18)
[2016-10-07] MEDS: HUMULIN 70/30 SUBQ SCH (08:19)
[2016-10-07] MEDS: NEURONTIN PO SCH ×2 (08:19→14:01)
[2016-10-07] MEDS: GLUCOPHAGE PO SCH (08:19)
[2016-10-07] MEDS: LOVENOX SUBQ SCH (08:19)
[2016-10-07] MEDS: SANTYL OINT TOP SCH (11:25)
[2016-10-07 11:59] VITALS: BP 134/67
[2016-10-07] MEDS ORDERED: INSULIN PEN NEEDLES ONE (13:43)
--- NOTE | 2016-10-07 21:13 | DISCHARGE SUMMARY ---
ADMISSION DATE: 09/30/2016 DISCHARGE DATE: 10/07/2016 DIAGNOSES: 1. Diabetes uncontrolled. 2. Chronic obstructive pulmonary disease, mild exacerbation. 3. Left gluteal decubitus ulcer with infection status post debridement of skin, subcutaneous tissue, on 10/01/2016. 4. Klebsiella urinary tract infection. 5. Hypertension controlled. 6. Morbid obesity. DIAGNOSTICS: 1. 09/30/2016: Chest x-ray revealed no pneumonia. 2. 09/30/2016: Echocardiogram revealed no significant valvular abnormality. Estimated ejection fraction of 70% without wall motion abnormality evident. Normal left ventricular dimensions. 3. 10/01/2016: Chest x-ray. Stable chest. Lungs appear to be grossly clear. No consolidation is identified. PROCEDURES: 10/01/2016: Debridement of skin, subcutaneous tissue less than 20 square cm on left buttock, nonhealing wound, per Dr. Jarocho Machado. MICROBIOLOGY: Klebsiella urinary tract infection: Blood cultures revealed no growth after 5 days. HOSPITAL COURSE: Mr. Saini presented to the emergency room stating he did not feel well. He was found to be hyperglycemic with a blood sugar over 700 on admission. He was nonketotic at that time. He was treated with IV fluids as well as insulin and metformin. He was transitioned over to Levemir with sliding scale and blood sugars did improve to the 170s to 220s although the patient is homeless as well as noncompliant and it was felt that he would not be compliant with Lantus insulin as well as short-acting requiring multiple shots. Therefore, he was transitioned over to 70/30 twice a day with blood sugars ranging in the 180-218 range. He did have Klebsiella UTI for which he was covered with Merrem and he will be discharged on Levaquin for 7 more days hopefully dosing once a day. He will be asked to be more compliant with taking his medications. He was found to have a infected left sacral buttock wound that was debrided per Dr. Machado. He did receive 7 days of Merrem for antibiotic coverage. This was dressed with Santyl ointment and a Band-Aid per Dr. Machado's recommendations. At present it is healing well. DISCHARGE PHYSICAL EXAMINATION: Cardiovascular: Regular rate and rhythm. S1, S2 appreciated. Pulmonary: Breath sounds are clear with no increased work of breathing noted. Gastrointestinal: Abdomen is large, soft, nondistended, nontender with bowel sounds in all 4 quadrants. Extremities: No clubbing, cyanosis, or edema. Calves nontender. Pulses are palpable x4. Skin: Wound on left buttock is noted with Band-Aid intact. Site is clear with no redness or drainage noted. DISCHARGE MEDICATIONS: 1. Lisinopril/hydrochlorothiazide 10/12.5 daily. 2. Gabapentin 300 t.i.d. 3. Clonidine 0.2 q.6 hours p.r.n. 4. Albuterol sulfate 1-2 puffs 3-4 times a day. 5. Metformin 500 mg p.o. b.i.d. 6. Humulin 70/30, 50 units b.i.d. 7. Santyl ointment. Apply to area of left buttock after being cleaned with soap and water with Band-Aid to cover. FOLLOWUP: 1. He is to follow up with Dr. Machado in the [facility] in the next 1-2 weeks. 2. Caring for the patient is difficult in that the patient is homeless. He does state that he has a friend that will let him stay inside when the weather is extreme. He was given names and numbers to shelters. He stated that he has been in local shelters and he has no desire to return. This was discussed with the patient by the Nursing Staff as well as social workers and nurse outreach case manager. The patient continues to decline any offer to assist getting into any shelters at present. He was given a list of names and numbers to call if he does change his mind. 3. It was discussed with the patient the importance of being compliant with his medications, with his insulin. He did state that he would continue to take his insulin twice a day as prescribed along with his other medications. 4. [facility] will [facility] well as other clinics around. It was discussed with the patient the importance of obtaining a primary care physician. He did voice understanding. DISPOSITION: He is being discharged home in stable condition with a friend. DISCHARGE TIME: This is a greater than 30 minute discharge. Dictated by AISHA Santiago for Andriy Ramirez MD cc: AISHA Santiago MD pt examined, [facility] with [facility]
== END 2016-10-07 14:47 | disposition home or self-care (01) ==
LOC: SUATTDRO → 3S 00:59 → ED 00:59 → SUATTDRO 07:32 → OBSVTOIN 07:32 → 4N 10-03 20:30
PROVIDERS: ATTEND Internal Medicine

== ENCOUNTER 2018-03-16 01:20 | Inpatient (IN) ==
[2018-03-16] MEDS ORDERED: NS 1,000 ML ONE (02:03)
[2018-03-16] MEDS ORDERED: DOPAMINE 800 MG/D5W 800 MG/500 ML IV.SOLN ONE (02:08)
[2018-03-16] MEDS: DOPAMINE 800 MG/D5W 800 MG/500 ML IV.SOLN IV SCH ×2 (02:15→22:09)
[2018-03-16 02:19] LABS: BASO# 0.07 X1000 (0.0-0.2); BASO% 0.4 % (0.0-0.8); EOS# 0.14 X1000 (0.0-0.7); EOS% 0.9 % (0.0-10.0); HEMATOCRIT 45.8 % (42.0-52.0); HEMOGLOBIN 12.4 g/dL (14.0-18.0); IMM GRAN# 0.23 X1000 (0.0-0.04); IMM GRAN% 1.4 % (0.0-0.5); LYMPH# 6.64 X1000 (1.2-3.4); MCH 28.8 PG (27-31); MCHC 27.1 g/dL (33-37); MCV 106.3 FL (81-99); MONO# 1.39 X1000 (0.11-0.59); MONO% 8.6 % (1.7-9.3); MPV 10.4 FL (7.4-10.4); NEUT# 7.71 X1000 (1.4-6.5); NEUT% 47.7 % (42.2-75.2); PLT 375 X1000 (130-400); RBC 4.31 XMIL (4.7-6.1); WBC 16.18 X1000 (4.8-10.8)
[2018-03-16 02:21] LABS: INR 1.15; PROTIME 15.6 Seconds (11.0-16.0); PTT 28.8 Seconds (22.3-41.8)
[2018-03-16 02:25] LABS: CALCIUM 9.1 mg/dL (8.8-10.2); MAGNESIUM 2.2 mg/dL (1.5-2.7)
[2018-03-16 02:32] LABS: AGAP 18; ALB/GLOB RATIO 1.1; ALBUMIN 3.8 g/dL (3.5-5.0); ALKALINE PHOSPHATASE 103 U/L (32-122); BUN 27 mg/dL (8-22); CALCIUM 8.9 mg/dL (8.8-10.2); CHLORIDE 96 mmol/L (98-107); CK TOTAL 73 U/L (24-204); COSMO 301; CREATININE 1.2 mg/dL (0.7-1.2); ESTIMATED GFR > 60; GLUCOSE 161 mg/dL (70-104); GOT 21 U/L (10-34); GPT 16 U/L (10-44); POTASSIUM 4.7 mmol/L (3.5-5.1); SODIUM 147 mmol/L (136-145); TCO2 33 mmol/L (25-35); TOTAL BILIRUBIN 0.33 mg/dL (0.20-1.00); TOTAL PROTEIN 7.3 g/dL (6.3-8.3)
[2018-03-16 02:47] LABS: URINE SOURCE CATH
[2018-03-16 02:54] LABS: EOS 1 % (1-10); LYMPHS 41 % (21-51); MONO 10 % (1-9); SEGS 48 % (42-75)
[2018-03-16 03:03] LABS: BILIRUBIN URINE NEGATIVE (NEGATIVE); BLOOD URINE TRACE-INTACT (NEGATIVE); CLARITY CLEAR (CLEAR); COLOR YELLOW; GLUCOSE URINE NEGATIVE (NEGATIVE); KETONE URINE NEGATIVE (NEGATIVE); LEUKOCYTES URINE NEGATIVE (NEGATIVE); NITRITE URINE NEGATIVE (NEGATIVE); PROTEIN URINE 100 mg/dL (NEGATIVE); SP GRAVITY URINE >= 1.030; UROBILINOGEN URINE 0.2 EU/dL (0.2-1.0)
[2018-03-16] MEDS ORDERED: LASIX IV ONE (03:04)
[2018-03-16] MEDS ORDERED: NS 1,000 ML IV ONE (03:09)
[2018-03-16] MEDS ORDERED: LASIX ONE (03:11)
[2018-03-16 03:27] LABS: URINE RBC <10 /HPF (<10); URINE WBC <10 /HPF (<10)
--- NOTE | 2018-03-16 03:29 | PROVIDER DOCUMENTATION ---
This chart was entered by Ponce Albarado Scribe, acting as scribe for Eliot Mack MD. HPI-Cardiopulmonary Arrest - General Chief Complaint: Full Arrest Stated Complaint: full arrest Time Seen by Provider: 03/16/18 01:25 Source: EMS Unable to obtain history due to:: other (Code) Allergies/Adverse Reactions: Allergies Allergy/AdvReac Type Severity Reaction Status Date / Time Penicillins Allergy Mild HIVES Verified 02/28/18 10:13 Sulfa (Sulfonamide Allergy Mild HIVES Verified 02/28/18 10:13 Antibiotics) [Sulfa(Sulfonamide Antibiotics)] Home Medications: Home Medication List Medication Instructions Recorded Confirmed Last Taken Type Folic Acid 1 mg PO DAILY #30 tab 01/30/17 02/28/18 08/15/17 08:00 Rx Insulin Humulin 70/30 [Humulin 40 unit SUBQ ACB #1 insuln.pen 07/24/17 02/28/18 08/15/17 08:00 Rx 70/30] Cetirizine HCl 10 mg PO DAILY 02/07/18 02/28/18 Unknown History Gabapentin [Neurontin] 300 mg PO TID@0900,1500,2100 02/07/18 02/28/18 Unknown History ATORVAstatin [Lipitor] 40 mg PO QHS #60 tab 02/16/18 02/28/18 Unknown Rx Aspirin 81 mg PO DAILY #60 chewtab 02/16/18 02/28/18 Unknown Rx Metoprolol [Lopressor] 25 mg PO Q12HR #120 tab 02/16/18 02/28/18 Unknown Rx Valsartan [Diovan] 40 mg PO DAILY #60 tab 02/16/18 02/28/18 Unknown Rx Alprazolam [Xanax] 0.25 mg PO TID PRN PRN #30 tab 03/09/18 Unknown Rx CefUROXIME [Ceftin] 250 mg PO Q12HR #14 tab 03/09/18 Unknown Rx Furosemide [Lasix] 40 mg PO BID #60 tab 03/09/18 Unknown Rx Hydrocodone/APAP 5 mg/325 mg 1 ea PO Q6H PRN PRN #25 tab 03/09/18 Unknown Rx [[place]-5] Polyethylene Glycol 3350 [Miralax] 17 gm PO BID powder, packet 03/09/18 Unknown Rx Pregabalin [Lyrica] 75 mg PO BID #60 cap 03/09/18 Unknown Rx - History of Present Illness-C/P Arrest Initial Comments: Pt is a 52 yowm who presents to ER via EMS as full code. EMS reported that pt was talking to people at the long term when he had a sudden arrest, was hooked up to an AED and was possibly shocked. 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 Reason for Code Blue?: full arrest Witnessed arrest?: Yes Down-time before ACLS?: unknown Treatment initiated prior to doctor arrival?: Initiated epinephrine #mg - Pre-hospital Treatment EMS Initial Findings:: unresponsive Pre-hospital Treatment: Initiated epinephrine Review of Systems - Adult - REVIEW OF SYSTEMS - ADULT ROS:: unobtainable per condition Constitutional: reports: no symptoms reported Eyes: reports: no symptoms reported Ears, Nose, Mouth & Throat: reports: no symptoms reported Cardiovascular: reports: no symptoms reported Respiratory: reports: no symptoms reported Gastrointestinal: reports: no symptoms reported Genitourinary: reports: no symptoms reported Musculoskeletal: reports: no symptoms reported Integumentary: reports: no symptoms reported Neurological: reports: no symptoms reported Psychiatric: reports: no symptoms reported Endocrine: reports: no symptoms reported Hematologic/Lymphatic: reports: no symptoms reported Allergic/Immunologic: reports: no symptoms reported All Other Systems: Reviewed and Negative Past History - Adult - PAST MEDICAL HISTORY-ADULT Review of Records: reports: Nursing Assessment Review, Medications Reviewed, Social history reviewed & non-contributory. Major Childhood Illnesses: reports: denies history Cardiovascular: reports: CHF, HTN, AR (x3) Respiratory: reports: asthma, COPD, sleep apnea Gastrointestinal: reports: GERD Obstetrical/Gynecological: reports: denies history Genitourinary: reports: denies history Musculoskeletal: reports: denies history Neurological: reports: denies history Psychiatric: reports: anxiety, other (panic attacks) Endocrine/Immune: reports: Diabetes Other Conditions: reports: denies history - PRIOR SURGERIES/PROCEDURES Surgical/Procedure History: reports: appendectomy, bowel surgery (colon), orthopedic (extremity) (right clavical), back/neck (x2), other (cervical spine, lumbar spine, colon rescection) - IMMUNIZATION STATUS Childhood Immunizations: See Nurse Assessment Flu Vaccine: See Nurse Assessment - FAMILY HISTORY Family History: reviewed, not pertinent Physical Exam-General - PHYSICAL EXAM-ADULT Exam Limited by: Pt unresponsive - CONSTITUTIONAL General Appearance: other (unresponsive) - RESPIRATORY Respiratory: crackles, rales. negative: lungs clear, normal breath sounds, rhonchi - GASTROINTESTINAL (ABDOMEN) Abdominal Exam: normal bowel sounds, distended - MUSCULOSKELETAL Extremity: other (bilateral knee psoriasis) - SKIN Integumentary: normal color, normal turgor Progress - PLAN OF CARE/RESULTS Progress/Plan/Lab Results: Laboratory Results - last 24 hr 03/16/18 03/16/18 03/16/18 01:30 01:30 01:30 WBC 16.18 H RBC 4.31 L Hgb 12.4 L Hct 45.8 MCV 106.3 H MCH 28.8 MCHC 27.1 L RDW Std Deviation 15.0 H Plt Count 375 MPV 10.4 Immature Gran % (Auto) 1.4 H Neut % (Auto) 47.7 Lymph % (Auto) 41.0 Lawrence % (Auto) 8.6 Eos % (Auto) 0.9 Baso % (Auto) 0.4 Immature Gran # (Auto) 0.23 H Neut # (Auto) 7.71 H Lymph # (Auto) 6.64 H Lawrence # (Auto) 1.39 H Eos # (Auto) 0.14 Baso # (Auto) 0.07 Segmented Neutrophils 48 Lymphocytes 41 Monocytes 10 H Eosinophils 1 PT 15.6 INR 1.15 PTT (Actin FS) 28.8 Sodium 147 H Potassium 4.7 Chloride 96 L Carbon Dioxide 33 Anion Gap 18 BUN 27 H Creatinine 1.2 Estimated GFR/1.73 m2 > 60 BUN/Creatinine Ratio 23 Glucose 161 H POC Glucose Calculated Osmolality 301 Calcium 8.9 Phosphorus Magnesium Total Bilirubin 0.33 AST 21 ALT 16 Alkaline Phosphatase 103 Creatine Kinase 73 Troponin T Nji-J-[place] Pept Total Protein 7.3 Albumin 3.8 Globulin 3.5 Albumin/Globulin Ratio 1.1 Urine Source Urine Color Urine Clarity Urine Turbidity Urine pH Ur Specific [place] Urine Protein Ur Glucose (Stick) Urine Ketones Ur Ketones (Stick) Urine Blood Urine Nitrite Urine Bilirubin Urine Urobilinogen Urobilinogen Dipstick Urine Leukocytes Urine WBC (Auto) Urine RBC (Auto) U Epithel Cells (Auto) Urine Bacteria (Auto) Urine WBC Urine Glucose 03/16/18 03/16/18 03/16/18 01:30 01:30 01:30 WBC RBC Hgb Hct MCV MCH MCHC RDW Std Deviation Plt Count MPV Immature Gran % (Auto) Neut % (Auto) Lymph % (Auto) Lawrence % (Auto) Eos % (Auto) Baso % (Auto) Immature Gran # (Auto) Neut # (Auto) Lymph # (Auto) Lawrence # (Auto) Eos # (Auto) Baso # (Auto) Segmented Neutrophils Lymphocytes Monocytes Eosinophils PT INR PTT (Actin FS) Sodium Potassium Chloride Carbon Dioxide Anion Gap BUN Creatinine Estimated GFR/1.73 m2 BUN/Creatinine Ratio Glucose POC Glucose Calculated Osmolality Calcium 9.1 Phosphorus 8.1 H Magnesium 2.2 Total Bilirubin AST ALT Alkaline Phosphatase Creatine Kinase Troponin T 0.014 Mud-W-Pdduvhcqsgv Pept Total Protein Albumin Globulin Albumin/Globulin Ratio Urine Source Urine Color Urine Clarity Urine Turbidity Urine pH Ur Specific [place] Urine Protein Ur Glucose (Stick) Urine Ketones Ur Ketones (Stick) Urine Blood Urine Nitrite Urine Bilirubin Urine Urobilinogen Urobilinogen Dipstick Urine Leukocytes Urine WBC (Auto) Urine RBC (Auto) U Epithel Cells (Auto) Urine Bacteria (Auto) Urine WBC Urine Glucose 03/16/18 03/16/18 03/16/18 01:30 01:40 01:57 WBC RBC Hgb Hct MCV MCH MCHC RDW Std Deviation Plt Count MPV Immature Gran % (Auto) Neut % (Auto) Lymph % (Auto) Lawrence % (Auto) Eos % (Auto) Baso % (Auto) Immature Gran # (Auto) Neut # (Auto) Lymph # (Auto) Lawrence # (Auto) Eos # (Auto) Baso # (Auto) Segmented Neutrophils Lymphocytes Monocytes Eosinophils PT INR PTT (Actin FS) Sodium Potassium Chloride Carbon Dioxide Anion Gap BUN Creatinine Estimated GFR/1.73 m2 BUN/Creatinine Ratio Glucose POC Glucose 161 H Calculated Osmolality Calcium Phosphorus Magnesium Total Bilirubin AST ALT Alkaline Phosphatase Creatine Kinase Troponin T Ens-I-Cwviruklrtf Pept 70753 H Total Protein Albumin Globulin Albumin/Globulin Ratio Urine Source Cancelled Urine Color Cancelled Urine Clarity Urine Turbidity Cancelled Urine pH Cancelled Ur Specific [place] Cancelled Urine Protein Cancelled Ur Glucose (Stick) Cancelled Urine Ketones Ur Ketones (Stick) Cancelled Urine Blood Cancelled Urine Nitrite Cancelled Urine Bilirubin Cancelled Urine Urobilinogen Urobilinogen Dipstick Cancelled Urine Leukocytes Cancelled Urine WBC (Auto) Cancelled Urine RBC (Auto) Cancelled U Epithel Cells (Auto) Cancelled Urine Bacteria (Auto) Cancelled Urine WBC Urine Glucose 03/16/18 01:57 WBC RBC Hgb Hct MCV MCH MCHC RDW Std Deviation Plt Count MPV Immature Gran % (Auto) Neut % (Auto) Lymph % (Auto) Lawrence % (Auto) Eos % (Auto) Baso % (Auto) Immature Gran # (Auto) Neut # (Auto) Lymph # (Auto) Lawrence # (Auto) Eos # (Auto) Baso # (Auto) Segmented Neutrophils Lymphocytes Monocytes Eosinophils PT INR PTT (Actin FS) Sodium Potassium Chloride Carbon Dioxide Anion Gap BUN Creatinine Estimated GFR/1.73 m2 BUN/Creatinine Ratio Glucose POC Glucose Calculated Osmolality Calcium Phosphorus Magnesium Total Bilirubin AST ALT Alkaline Phosphatase Creatine Kinase Troponin T Gpl-L-Otmzvajzxar Pept Total Protein Albumin Globulin Albumin/Globulin Ratio Urine Source CATH Urine Color YELLOW Urine Clarity CLEAR Urine Turbidity Urine pH 6.0 Ur Specific [place] >= 1.030 Urine Protein 100 A Ur Glucose (Stick) Urine Ketones NEGATIVE Ur Ketones (Stick) Urine Blood TRACE-INTACT A Urine Nitrite NEGATIVE Urine Bilirubin NEGATIVE Urine Urobilinogen 0.2 Urobilinogen Dipstick Urine Leukocytes Urine WBC (Auto) Urine RBC (Auto) U Epithel Cells (Auto) Urine Bacteria (Auto) Urine WBC NEGATIVE Urine Glucose NEGATIVE Orders Category Date Time Status Dias Care ROUTINE Care 03/16/18 01:55 Active IV Insertion ORDERED Care 03/16/18 01:55 Completed CHEST-PORTABLE [RAD] Stat Exams 03/16/18 01:53 Taken ABG [RESP] Routine Lab 03/16/18 02:33 Ordered BLOOD CULTURE [BLDCUL] Stat Lab 03/16/18 02:47 Ordered CALCIUM [CHEM] Stat Lab 03/16/18 01:30 Completed CBC WITH DIFF [HEME] Stat Lab 03/16/18 01:30 Completed CK TOTAL [CHEM] Stat Lab 03/16/18 01:30 Completed CMP [COMPREHENSIVE METABOLIC PANEL] [CHEM] Stat Lab 03/16/18 01:30 Completed MAGNESIUM [CHEM] Stat Lab 03/16/18 01:30 Completed PHOSPHORUS [CHEM] Stat Lab 03/16/18 01:30 Completed PRO B-NATRIURETIC PEPTIDE Stat Lab 03/16/18 01:30 Completed PT [PROTIME WITH INR] [COAG] Stat Lab 03/16/18 01:30 Completed PTT [COAG] Stat Lab 03/16/18 01:30 Completed SPUTUM CULTURE WITH GRAM STAIN [RM] Stat Lab 03/16/18 03:06 Uncollected TROPONIN T Stat Lab 03/16/18 01:30 Completed 0.9% Sodium Chloride Inj [Ns] 1,000 ml Med 03/16/18 02:03 Discontinued .ROUTE As Directed 0.9% Sodium Chloride Inj [Ns] 1,000 ml Med 03/16/18 03:09 Active IV 999 mls/hr Dopamine 800 mg/D5w Med 03/16/18 02:08 Discontinued 800 mg in 500 ml .ROUTE As Directed Dopamine 800 mg/D5w Med 03/16/18 03:15 Active 800 mg in 500 ml IV As Directed Furosemide [Lasix] Med 03/16/18 03:11 Discontinued 40 mg .ROUTE .STK-MED ONE Furosemide [Lasix] Med 03/16/18 03:04 Discontinued 40 mg IV NOW ONE EKG [EKG] Stat Ther 03/16/18 01:54 Ordered Result Diagrams: 03/16/18 01:30 03/16/18 01:30 Procedures - CENTRAL LINE Consent Form Signed?: No Time-Out Verification Completed?: Yes Central Line Lumen: triple Central Line Procedure Prep: Hand Hygeine Performed, Kit Utilized, Chloraprep, Sterile Body Drape Placed, Antibiotic-coated Catheter Used Patient Position (To prevent Air Embolism): Trendelenburg (SC/IJ) Central Line Position: femoral (R) Ultrasound Guided?: Yes Hat, mask, sterile gown, & sterile gloves worn by physician?: Yes Site scrubbed vigorously for 30 seconds? (Groin: 2 min): Yes Post Procedure: Sutured in place, Sterile field maintained, BioPatch placed, Sterile dressing applied, Blood aspirated from each lumen - INTUBATION Intubation Method: orotracheal Equipment: ETT, Glidescope Tube Size (cm): 8.0 Breath Sounds after Intubation: equal Intubation Complications: no complications Vent Settings: See Respiratory Therapy Notes Departure - Departure Date of Disposition Decision: 03/16/18 Time of Disposition Decision: 03:27 DIAGNOSIS: Cardiac arrest Disposition: ADMITTED INPATIENT 09 Certified Medical Emergency: Emergent Condition: Critical Referrals and Follow-Ups: Jameson Espinoza MD [Primary Care Provider] - - Critical Care Note This patient required my direct & personal management of CC.: No Total Time (mins): 127 Critical Care Statement: This patient required my direct personal management to treat or rule out processes, the absence of which, could potentiallly result in sudden, clinically significant life or limb threatening deterioration. Attestation - Physician/ SRAVANTHI Attestation Patient care was provided by Advanced Practice Provider:: No The physician spent face to face time with patient:: Yes Advanced Practice Provider documentation review:: Supervising physician onsite and consulted in the evaluation and care of this patient. The physician did have a face to face encounter with the patient. This chart was documented by the indicated scribe, (Ponce Albarado Scribe) and accurately reflects the services I performed and decisions made by me, Eliot Mack MD, as attested by the provider's signature.
[2018-03-16 03:57] LABS: ALLEN TEST YES; BE 10.1 mmoll (-3.0-3.0); BLOOD TYPE ARTERIAL; HCO3-(ACT) 32.4 mmoll (20.0-26.0); METHB 1.3 % (0.0-1.5); O2(CT) 14.9 mL/dL (15.0-23.0); SAMPLE BLOOD; SAO2 85.4 % (95.0-100.0); SRATE 16 BPM; THB 12.9 g/dL (11.5-17.4); TVOL 600 mL; pH(98.6) 7.32 (7.35-7.45)
[2018-03-16 04:00] LABS: MODALITY VENTILATOR
[2018-03-16 04:01] LABS: PCO2(98.6) 76 mmHg (35-45); PO2(98.6) 46 mmHg (60-100)
[2018-03-16 04:02] LABS: O2HB 82.1 % (95.0-99.0)
[2018-03-16] MEDS ORDERED: DUONEB (A & A) INH PRN (04:48)
[2018-03-16] MEDS: DIPRIVAN 1% 1,000 MG/100 ML BOTTLE IV SCH ×2 (04:54→22:10)
[2018-03-16] MEDS: PROTONIX IV SCH ×2 (05:02→17:35)
[2018-03-16 05:14] LABS: HEMOGLOBIN A1C 8.5 % (4.8-6.0)
--- NOTE | 2018-03-16 05:20 | HISTORY AND PHYSICAL ---
PRIMARY CARE PHYSICIAN: Dr. Jameson Espinoza ER PHYSICIAN: Dr. Rashad Mack. CHIEF COMPLAINT: Status post cardiac arrest. HISTORY: This is a 52-year-old male very well known to our service for history of congestive heart failure with ejection fraction of 25% and COPD on home oxygen, history of coronary artery disease. Patient is intubated and no family in the room. History taken from the ER reports and ER notes. The patient has been recently discharged from the hospital to [facility] 1 week ago. Patient presented to the ER via EMS after cardiac arrest. EMS reported the patient was talking to people in the care home when he had a sudden arrest. He was hooked up to an AED and we are not sure that he was shocked. We know that this patient received 2 epinephrine, and he was intubated here in the ER now requiring vasopressors. He is not requiring any sedation at this point. The patient is going to be admitted to the intensive care unit. PAST MEDICAL HISTORY: 1. Congestive heart failure with ejection fraction of 25% to 30% on echo from . It is important to remark that in that echo from September of 2016, he had an ejection fraction of 70%. 2. Diabetes mellitus type 2. 3. Hyperlipidemia. 4. COPD on home oxygen. 5. Coronary artery disease status post LA. 6. Tobacco abuse. 7. Frequent falls. PAST SURGICAL HISTORY: 1. Incision and drainage of left 1st toe. 2. Exploratory laparoscopy for bowel obstruction. 3. Many back surgeries. SOCIAL HISTORY: The patient as per last H P from a couple of weeks ago reports that he continues to smoke half a pack per day. He does not drink any alcohol. He does have a history of cocaine, but there is no UDS ordered at this time. ALLERGIES: The patient is allergic to penicillin and sulfa. Both of them cause hives. HOME MEDICATIONS: Still pending. REVIEW OF SYSTEMS: Not possible to obtain. FAMILY HISTORY: Not possible to obtain. PHYSICAL EXAMINATION: VITALS: There are no vitals recorded in the chart. GENERAL: This is a chronically ill-looking 52-year-old male lying in bed in no acute distress. Sedated and intubated. HEENT: Head is normocephalic and atraumatic. Pupils equal, round, and reactive to light and accommodation. NECK: No JVD noted. There is IJ placed in the left neck. No thyromegaly noted. CARDIOVASCULAR: S1-S2 heard. No murmurs, gallops, or rubs. Regular rate and rhythm. RESPIRATORY: Coarse breath sounds noted in both pulmonary lal mostly noted in both bases with some wheezing as well. Patient is not using any accessory muscles or having work of breathing. Patient is intubated. ABDOMEN: Soft. Distended. Bowel sounds present. Umbilical hernia noted. EXTREMITIES: No clubbing or cyanosis. Edema 2+ in both lower extremities. Both lower extremities are somewhat cool to touch. NEUROLOGICAL: Patient is intubated. No sedation provided at the time of dictation. LABORATORY DATA: White cell count 16.18, hemoglobin of 12.4, hematocrit 45.8, and platelets 375,000. INR 1.15. ABG shows pH 7.32, with pCO2 76, PO2 46. That was at FiO2 100%. Sodium 147 and creatinine 1.2, phosphorus 8.1. ProBNP 11 and 141. Urinalysis unremarkable. ASSESSMENT AND PLAN: 1. Status post cardiac arrest. 2. Acute respiratory failure on ventilator. 3. History of congestive heart failure with ejection fraction 25%. 4. Diabetes mellitus type 2. 5. COPD. 6. Possible aspiration pneumonia. PLAN: 1. This patient basically was brought to the hospital for cardiac arrest. At this point, there is no more information about what happened with this patient. We have noticed that there is an elevated white cell count. Also, considering his history of cardiac arrest, we are going to do a CT of the chest to rule out any pneumonia or pulmonary embolism that may have happened to him. As we mentioned before, because the white cell count is elevated, I prefer to start meropenem on this patient 1 g IV q.8 hours. We will likely use Zosyn but patient is allergic to penicillin. We will provide also breathing treatments scheduled considering his history of COPD. 2. Also, for abdominal distention, we will check an abdomen and pelvis CT. Considering the history of low ejection fraction and CHF, we will consult Cardiology. We will order another echocardiogram even though there was the last one that was done 3 months ago. We will provide Lasix 20 mg IV q.12 hours for pulmonary edema the that we have noticed on the x-ray. Considering his history of cocaine abuse, we are going to order a UDS. We are going to consult Pulmonary and Cardiology. We will monitor this patient closely. CRITICAL CARE TIME: 40 minutes. cc: Jayson Milner MD MTDD
[2018-03-16 05:22] LABS: UR AMPHETAMINES QUAL NONE DETECTED (NONE DETECT); UR BARBITUATES QUAL NONE DETECTED (NONE DETECT); UR BENZODIAZEPIN QUAL PRESUMPTIVE POSITIVE (NONE DETECT); UR CANNABINOIDS QUAL NONE DETECTED (NONE DETECT); UR COCAINE QUAL NONE DETECTED (NONE DETECT); UR METHADONE QUAL NONE DETECTED (NONE DETECT); UR OPIATES QUAL PRESUMPTIVE POSITIVE (NONE DETECT); UR OXYCODONE QUAL NONE DETECTED (NONE DETECT); UR PCP QUAL NONE DETECTED (NONE DETECT)
--- NOTE | 2018-03-16 05:52 | Diag Imaging Result Doc PS360 ---
EXAM: CHEST-PORTABLE HISTORY: code TECHNIQUE: Chest single view COMPARISON: 02/28/2018 FINDINGS: The lungs are well expanded. Endotracheal tube is in good position. Nasogastric tube overlies the esophagus and stomach. The heart is enlarged. There is vascular distention. IMPRESSION: Cardiomegaly with pulmonary edema. There may be underlying infiltrates as well. Electronically signed by Thiago Dhaliwal 03/16/2018 5:50 AM
--- NOTE | 2018-03-16 06:03 | Diag Imaging Result Doc PS360 ---
EXAM: CT ABD/PELVIS/PULM ARTERIES HISTORY: cardiac arrest, abdominal distension, TECHNIQUE: 1. CT chest with intravenous contrast. Pulmonary arterial study with MIP images. 2. CT abdomen and pelvis with intravenous contrast COMPARISON: Chest is compared to 01/29/2018. No comparison for the abdomen and pelvis. FINDINGS: Chest: Endotracheal tube in good position. There is a moderate to large right pleural effusion measuring 5.7 cm posteriorly and inferiorly in the midline and a small left pleural effusion measuring 2.0 cm. These are fairly similar to the prior study. The heart remains enlarged. No thoracic aortic aneurysm or dissection. Normal opacification of the pulmonary arteries. There is vascular distention. There are infiltrates and atelectasis to the lower lobes. There are smaller infiltrates and atelectasis to the upper lobes. Abdomen and pelvis: No calcified gallstones. There is fatty infiltration of the liver. Normal spleen, pancreas, and adrenal glands. No renal masses. No renal stones. Mild distention of ureters. Severe atherosclerosis. No aortic aneurysm. There are many scattered colonic diverticula. The proximal colon has been resected. No bowel obstruction. There is a small amount of abdominal ascites. A Dias catheter is in the urinary bladder. No pelvic mass. There is body wall edema. Small fat filled umbilical hernia is present. IMPRESSION: Chest: 1. No pulmonary emboli 2. Cardiomegaly with pulmonary edema and pleural effusions 3. Bilateral atelectasis and infiltrates 4. The overall appearance is fairly similar to that of the prior study. Abdomen and pelvis: 1. Fatty liver 2. Small amount of ascites 3. Diverticulosis 4. Body wall edema 5. Small umbilical hernia This exam was performed using automated exposure control, adjustment of mA or kV according to patient size, and/or use of iterative reconstruction technique. Electronically signed by Thiago Dhaliwal 03/16/2018 6:01 AM
[2018-03-16] MEDS ORDERED: MERREM 1 GM in NS 50 ML IV ONE (07:00)
--- NOTE | 2018-03-16 07:02 | EKG Report ---
Test Performed on : 03/16/2018 01:27:47 AM Test Reason : dg Blood Pressure : / mmHG Vent. Rate : 100 BPM Atrial Rate : 100 BPM P-R Int : 164 ms QRS Dur : 098 ms QT Int : 352 ms P-R-T Axes : 043 054 150 degrees QTc Int : 454 ms Sinus rhythm. with frequent premature ventricular complexes. Low voltage QRS Septal infarct , age undetermined T wave abnormality, consider lateral ischemia Abnormal ECG When compared with ECG of 14-FEB-2018 08:34, premature ventricular complexes. are now present Septal infarct is now present Nonspecific T wave abnormality, worse in Inferior leads T wave inversion now evident in Lateral leads Unconfirmed Result
[2018-03-16] MEDS: DUONEB (A & A) INH SCH ×5 (07:30→23:04)
[2018-03-16] MEDS ORDERED: SODIUM CHLORIDE 0.9% INJ SCH (07:50)
[2018-03-16] MEDS ORDERED: ZOFRAN IV PRN (07:50)
--- NOTE | 2018-03-16 08:11 | EKG Report ---
Test Performed on : 03/16/2018 08:03:57 AM Test Reason : chest pain Blood Pressure : / mmHG Vent. Rate : 116 BPM Atrial Rate : 120 BPM P-R Int : 168 ms QRS Dur : 096 ms QT Int : 332 ms P-R-T Axes : 000 072 161 degrees QTc Int : 461 ms Sinus tachycardia. with occasional premature ventricular complexes. Low voltage QRS Cannot rule out Anterior infarct (cited on or before 16-MAR-2018) Abnormal ECG When compared with ECG of 16-MAR-2018 01:27, (Unconfirmed) T wave inversion no longer evident in Lateral leads One ventricular couplet noted Confirmed by Digna MAXWELL, Paulo Fernandez ([id number]) on 03/17/2018 1:08:34 PM
--- NOTE | 2018-03-16 08:27 | Diag Imaging Result Doc PS360 ---
EXAM: CHEST-PORTABLE HISTORY: resp failure TECHNIQUE: Chest single view COMPARISON: 2:03 AM FINDINGS: No change in the endotracheal tube or nasogastric tube. Cardiomegaly remains. Bilateral pleural effusions persist. The bilateral infiltrates and atelectasis. IMPRESSION: No significant change. Electronically signed by Thiago Dhaliwal 03/16/2018 8:24 AM
[2018-03-16] MEDS ORDERED: VANCOMYCIN IV PER PHARMACY MISC SCH (08:45)
[2018-03-16] MEDS ORDERED: ASPIRIN PR SCH ×2 (09:00→16:00)
[2018-03-16] MEDS ORDERED: VANCOMYCIN 2,000 MG in NS 500 ML IV ONE (10:00)
--- NOTE | 2018-03-16 10:25 | PROGRESS NOTE ---
DATE: 03/16/2018 SUBJECTIVE: This morning, Mr. Saini continues to be intubated. He is not able to give any interval history. From review of his chart, it appears he was first seen over here in the ER on 03/16/2018 at 0125. From the chart, it does appear that Mr. Saini came in status post cardiac arrest. EMS gave him 2 rounds of epi, probably in route. He got intubated in the ER I was able to reach out to nurse, Graciela, who was the night nurse at [facility] yesterday at the time of the code. According to nurse Owens, Mr. Saini was talking to the BASKET PATCHER when he asked for help to be lifted up from the wheelchair to his bed. As soon as he went on his bed, he just rolled back, and he became unresponsive. The BASKET PATCHER called the nurse immediately, and the nurses went there. When they went, Mr. Saini did not have pulse and was not breathing. Immediately, they activated the code. They applied AED Initial rhythm was asystole. Chest compression was resumed. It went on for 2 minutes before spontaneous circulation was achieved. I understand after that 2 minutes of resuscitation, Mr. Saini opened his eyes, took some shallow breathing. His rhythm was sinus and the pulse was 52; however, about a minute later, he went from 52 of pulse to 0, AED showed asystole and chest compression resumed. That went on for about 3 minutes until EMS arrived. When EMS arrived, according to nurse Owens, they were still doing CPR and EMS was out there with the patient for about another 10 minutes before putting him in the ambulance and transporting him here. The patient was in [facility] going through the code from 0048 until 0108 when the EMS arrived, and it is theorized that EMS spent about 10 minutes with the patient from to 08 before they started the journey to the hospital. As documented in the hospital notes, that the first time the patient was seen by a provider was 0125. In summary, it appears that Mr. Saini had a witnessed arrest. Initial rhythm was asystole. He had multiple rounds of chest compression, but no ACLS medication was given since that is not allowed in the shelter. It also appears that he did get some epinephrine in route coming to the hospital from the EMS. I do not see any report from the EMS to know what else they were able to do. This morning, Mr. Saini continued to be unresponsive. He is intubated, but he is currently on propofol and on dopamine drip. OBJECTIVE: Vital Signs: Blood pressure is 111/67, pulse is 116, respiration is 18, temperature is not documented. His pulse art is about 94 on mechanical ventilation. General: Mr. Saini is a 52- year-old gentleman. He was in bed. He is intubated and sedated on propofol. Mucosa is pink and moist. Anicteric. Acyanotic. Neck was supple. There is a left sided EJ. There was no JVD. Chest: Air entry was bilaterally reduced. There is some distant crackles in posterior lung lal. Cardiovascular: Regular rate and rhythm. No murmurs, no rubs, no gallops. GI: Abdomen is soft. Bowel sounds are present. I did not feel any hepatosplenomegaly. There is a lot of edema around the abdominal wall. Extremities about 2+ pedal edema. There is also edema on the upper thighs. Musculoskeletal: There is erythematous scaly lesions on the extensor surfaces of the knees and the elbows consistent with probably psoriatic disorder. 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 He would not respond to voice. He seems to de-celebrate to extreme painful stimulation, and he would have no verbal response. Pupils are midsize, and they are not reactive. The patient does not track. Occasionally, he would make some jerking movements with his entire body which seemed to be myoclonic jerks. He seems to have gag reflex upon suctioning. LABORATORY DATA: WBC is 16.18, hemoglobin is 12.4, platelet count is 374,000. Chemistry is also reviewed. Sodium is 147, potassium is 4.7, chloride 96, bicarb is 27. The patient's pH was 7.32, pCO2 is 76, PaO2 of 46. ASSESSMENT: 1. Status post cardiac arrest. It appears this was witnessed. Initial rhythm was asystole. The patient did go in and out of cardiac arrest with the same rhythm. 2. Comatose. The patient has no verbal response, has no eye opening response. He seems to de- celebrate with multiple facial twitching . He would forcefully extend both upper extremities to painful stimulation. So, his GCS at this point will be 5. I think he had suffered severe Anoxic brain injury. We will get neurology to evaluate him as well. 3. Acute hypoxemic respiratory failure. Patient is currently intubated. 4. [id number] hypercarbic respiratory failure. 5. History of chronic obstructive pulmonary disease. 6. History of congestive heart failure, probably in some exacerbation. At this point, the patient will continue to be on diuretic therapy. Cardiology has also been evaluated. 7. Severe ischemic cardiomyopathy with critical circ stenosis. The patient had a left heart catheterization on 02/14/2018 and the proximal circ was about 60%. Aggressive medical therapy was recommended. We will continue Aspirin and statin. 8. Hypotension. I presume this is all related to the cardiac event with poor cardiac output, however, sepsis cannot be entirely ruled out. The patient has been started on meropenem. I have added vancomycin just because the CTA did made mention of bilateral atelectasis and infiltrates. Unsure if there is any pneumonic process going on. So, in general, Mr. Saini continues to be remarkably sick. I have tried to reach out any contact on his file, but it stated there is no contact. Only place I could reach was [facility] where he was recently. Mr. Saini, at this point, was not on any hypothermia protocol and its too late to start now, so we would do targeted temperature management with cooling blankets to target core temperature less than 36 degrees C. I have also consulted Neurology. There is a consult also for Pulmonary Medicine and Cardiology to see him. Mr. Hernandez continues to be critically sick. We will see how his neurological outcome plays out, since there is a high probability that he might have suffered some anoxic brain injury. Critical time spent is 1 hour. cc: Chip Javed MD 18: 30 Addendum: I have spoken extensively to Ex , daughter and grandson-- all were at the bed side today. Attending nurse was also at the bedside at the late encounter. I went over the Mr Saini clinical picture with his family. I also did notify them that his condition looks very critical and that his neurological insult seems to be grievous and catastrophic. It is however too soon to prognosticate any meaningful neurological recovery. We did discussed his resuscitation status. For now, they prefer to keep him FULL CODE until they talk with patient son. But if patient condition should decline in the middle of the night, we should notify them. Daughter's name: Hannah Saini and number: [phone] MTDD
[2018-03-16] MEDS: LASIX IV SCH ×2 (11:00→22:10)
[2018-03-16] MEDS: LOVENOX SUBQ SCH (11:05)
--- NOTE | 2018-03-16 11:53 | CARDIOLOGY CONSULTATION ---
DATE: 03/16/2018 CHIEF COMPLAINT ON PRESENTATION: Status post cardiac arrest. HISTORY OF PRESENT ILLNESS: Mr. Saini is currently a sedated and intubated patient who has had multiple hospitalizations in the last 1 to 2 months. He is currently a resident of [facility]. Apparently, per chart review, as there are no notes from the care home, the patient was in his usual state of health and was being attempted to lift up from the wheelchair and transfer to the bed. He became unresponsive and rolled back into the bed. They noticed no pulse and activated a code. Apparently, the initial rhythm was felt to be asystole. Chest compressions were initiated. After a couple of minutes or so, it seemed like he regained circulation and was found to be in sinus. Apparently, he opened his eyes and took some breaths but apparently shortly thereafter he again went back into asystole and the code was continued for around 30 minutes until ACLS arrived. It does not appear the patient received any sort of defibrillation during that time. Subsequently, he was brought to the ER, intubated, and currently remains on dopamine and propofol. He does appear to be perfusing as his extremities are warm. He is not responding to any commands or performing any purposeful movements. PAST MEDICAL HISTORY: 1. His past medical history via chart review is significant for coronary artery disease with his last cardiac catheterization documented in February,. He had a 20% mid left main. LAD had proximal 30%. D1 had luminal irregularities up to around 20%-30%. Second diagonal had a proximal 60% to 70%. Circumflex had a 60% proximal lesion followed by severe diffuse small vessel disease involving essentially the entirety of the circumflex that seemed to have worsened significantly since 2013. The right coronary had a proximal 30% lesion, 40% to 50% percent in the mid and distal vessel with a 50% lesion just prior to the takeoff of the PDA. His EDP on that study was 22. 2. Systolic heart failure. His last echocardiogram was in January 2018 with an EF of 25% to 30% with global hypokinesis. 3. Chronic obstructive pulmonary disease. 4. Hyperlipidemia. 5. Diabetes. 6. Morbid obesity. SOCIAL HISTORY: Apparently, the patient had continued to smoke. He does have a history of cocaine in the past. Currently a resident of [facility]. FAMILY HISTORY: Not able to be obtained. REVIEW OF SYSTEMS: Not able to be obtained secondary to patient's current intubated status. PHYSICAL EXAMINATION: Vital Signs: He has been afebrile during this hospitalization. His heart rates have been predominantly in the 120s. His blood pressure is 124/84. His O2 saturation is 89%. General: He is in no acute distress. Again, he is sedated performing no purposeful movements. HEENT: Oropharynx is moist. Poor dentition. Eye examination shows pink conjunctivae. White sclerae. Neck: There is no obvious thyromegaly or thyroid tenderness. Cardiovascular: He sounds to be in a regular and tachycardic rhythm. He has no obvious murmurs. Very distant heart sounds. He has no lower extremity edema. He has warm and well perfused lower extremities. Chest: Notable for very poor breath sounds diffusely. He has no increased work of breathing. He is currently on the ventilator. Abdomen: Soft, nontender. Minimal breath bowel sounds were heard. Skin Exam: Warm and dry throughout. No obvious rashes. Neurological and Psychiatric: Unable to be performed secondary to current intubated status. PERTINENT DATA: CT of the chest and abdomen shows no pulmonary emboli. Cardiomegaly with pulmonary edema and pleural effusions. Bilateral infiltrates noted. Fatty liver. Small amount of ascites. Body wall edema is noted. EKG on presentation at 1:27 a.m. showed what appeared to be sinus rhythm occasional PVCs. Nonspecific diffuse ST-T changes. Subsequent EKG at 8:03 this morning showed sinus tach, occasional PVCs were noted. His chest x-ray this morning shows no evidence of significant changes, bilateral pleural effusions with infiltrates continue. His white count is 16. His hematocrit is 45. His platelet count is 375,000. His ABG shows a pH of 7.32 pCO2 of 76, PO2 of 46. He has an AA gradient of 572. He is on an FiO2 of 100%. His PO2 is 46. His sodium is 147, potassium 4.7. BUN 27, creatinine is 1.2. His ProBNP is 11,000. Negative cardiac enzymes. ASSESSMENT: Mr. Saini is a 52-year-old gentleman who presented with cardiac arrest. Presumably, his first rhythm was asystole. PLAN: The patient seems to be perfusing from a cardiovascular standpoint. He is on dopamine at this point. I do agree with some attempts at diuresis in the patient. He is on Lasix presently. He appears to have reasonable kidney function although it does seem to be a little higher than his previous of 0.8 back in early March. We will continue to follow. He does have a positive opiate and positive benzo screen. cc: Felix Yan MD
[2018-03-16] MEDS: HUMALOG SUBQ SCH ×4 (13:20→22:11)
--- NOTE | 2018-03-16 14:46 | ED EKG INTERP ---
This chart was entered by Santa Ambrose Scribe, acting as scribe for Pk Brito MD. EKG Interpretation - EKG Time of EKG reading by physician:: 08:05 EKG Read and Signed by:: kP Brito EKG Interpretation (*Must complete 3 of following elements*): Abnormal Rate: 116 Rhythm: sinus tachycardia with occasional premature ventricular complexes [place]: normal QRS: other (low voltage QRS) Comments: cannot rule out anterior infarct Attestation - Physician/ SRAVANTHI Attestation Patient care was provided by Advanced Practice Provider:: No The physician spent face to face time with patient:: Yes Advanced Practice Provider documentation review:: Supervising physician onsite and consulted in the evaluation and care of this patient. The physician did have a face to face encounter with the patient. This chart was documented by the indicated scribe, (Santa Ambrose Scribe) and accurately reflects the services I performed and decisions made by me, Pk Brito MD, as attested by the provider's signature.
[2018-03-16] MEDS: MERREM 1 GM in NS 50 ML IV SCH ×2 (16:00→23:21)
--- NOTE | 2018-03-16 16:34 | ECHO REPORT ---
ORDER DATE: 03/16/2018 INTERPRETING PHYSICIAN: Dr. Leos REQUESTING PHYSICIAN: CLINICAL INDICATIONS: This is a 52-year-old male with congestive failure, cardiac arrest. M-MODE MEASUREMENTS: Right ventricle: cm. Left ventricle end diastole: 3.7 cm. Left ventricle end systole: 6.2 cm. Posterior wall: 0.9 cm. Interventricular septum: 1.0 cm. Left atrium: 3.9 cm. Aortic root: 2.8 cm. SUMMARY OF 2-DIMENSIONAL IMAGIN. This study was technically very limited. Definity was added to optimize visualization of endocardium. 2. The left ventricular chamber appears to be dilated, and the left ventricular systolic function appears to be significantly impaired. Global ejection fraction is estimated at 15% to 20% at best. There is a special impairment of the posterolateral wall of left ventricle. 3. The aortic valve shows some sclerosis of the cusps without stenosis. Color flow mapping is unremarkable. 4. Mitral valve shows no evidence of any significant regurgitation. 5. Diastolic function cannot be properly evaluated. The patient is tachycardic, and the apical views are very limited. 6. Tricuspid valve shows moderate degree of regurgitation. 7. The inferior vena cava is dilated up to 3 cm. 8. The pulmonary pressure is estimated to be at 62 to 67 mmHg. 9. Pulmonic valve showed mild degree of regurgitation. 10.A left pleural effusion is noted. 11.There is no pericardial effusion. CONCLUSIONS: In summary, this study was difficulty. It shows a dilated left ventricle with severe impairment of systolic function. Ejection fraction is 15% to 20%. No significant valvular abnormality noted. There is significant pulmonary hypertension. There is markedly elevated right atrial pressure with an inferior vena cava that is dilated up to 3 cm with no respiratory variation. Clinical correlation is strongly recommended. cc: MD Jayson Kim MD
[2018-03-16] MEDS: SODIUM CHLORIDE 0.9% INJ SCH (17:35)
[2018-03-16] MEDS: TYLENOL PR PRN (17:36)
--- NOTE | 2018-03-16 18:22 | CONSULTATION ---
DATE OF CONSULTATION: 03/16/2018 LOCATION: He is in the emergency department holding bed. Mr. Saini is 52 years old and he had cardiac arrest, now with question of brain injury. He is not able to provide history. I have reviewed the hospital notes for this admission. There is past history of heart failure, low ejection fraction, ischemic heart disease, COPD. He has been afebrile. Heart rate has ranged 120s to 130s. Systolic blood pressure is also 120s to 130s. Lab showed blood sugar 161, A1c 8.5%, WBC count 16,000, BUN 27. Noncontrast CT of the head on 02/09/2018, prior to recent event, was unremarkable. His urine toxicology was positive for opiates and for benzodiazepines this admission. By report, he has not regained consciousness. He has been managed with intubation, mechanical ventilation, sedation. Current propofol dose is relatively low. On exam Mr. Saini is supine, intubated, initially not moving. As I passively elevated eyelids, he had some teeth clenching and facial grimacing repetitively for 1-2 seconds. When not stimulated, he was again motionless. I did not notice any limb movement. Limb tone is diminished and symmetric. Plantar response is silent bilaterally. I do not find DTRs. He has minimal lateral eye movement with passive head turning. Left pupil reacts consistently to bright light. I was not certain there is right pupil reaction to bright light. Corneal reflex is present but very sluggish bilaterally. I did not see him trigger the ventilator. Neck is supple. IMPRESSION: Global encephalopathy, diminished brainstem reflexes, likely anoxic brain injury, likely irreversible. The twitching movement is probably myoclonus and probably not seizure. Unfortunately, EEG is not available at this time. Therefore, I am going to empirically load with fosphenytoin and we can follow him clinically. We might consider brain imaging and EEG later depending on clinical course. I did not see family available and have not discussed with family. Thanks for asking Neurology to see Mr. Saini. cc: MD MANUELA Palumbo III
[2018-03-16] MEDS: KEPPRA 750 MG in NS 100 ML IV SCH (18:47)
[2018-03-16 21:26] LABS: CK INDEX 3.9 (0.0-2.5); CK-MB 14.66 ng/mL (0.0-5.0)
--- NOTE | 2018-03-16 23:17 | PULMONOLOGY CONSULTATION ---
DATE: 03/16/2018 REASON FOR CONSULTATION: Respiratory failure status post cardiopulmonary arrest. HISTORY OF PRESENT ILLNESS: Mr. Saini is a 52-year-old white male with severe COPD, chronic hypoxemic respiratory failure, ischemic cardiomyopathy who was currently residing at the care home after recent hospital admission. A member of the staff was in his room when he became unresponsive. He went through at least 2 rounds of CPR before he regained persistent spontaneous circulation. The patient presented to the emergency room shortly after midnight. He is now on mechanical ventilation. PAST MEDICAL HISTORY: 1. End-stage COPD. 2. Ischemic cardiomyopathy. 3. Peripheral vascular disease. 4. Dyslipidemia. 5. Diabetes mellitus. SOCIAL HISTORY: Patient continues to smoke. Has remote history of cocaine use. FAMILY HISTORY: Not obtainable. REVIEW OF SYSTEMS: Cannot be obtained. PHYSICAL EXAMINATION: General: Reveals a obese white male who appears older than his stated age of 52. He is having periodic startle reflex with opening of his eyes. He is on mechanical ventilation. He is on vasopressors. Vital Signs: BP 132/82, heart rate 124 , respiratory rate 18, oxygen saturation 92% on 100% FiO2. HEENT: Pupils are equal but not responsive. Oropharynx appears dry. Neck: Supple. Chest: Reveals prolonged expiratory phase. Cardiac: Increased rate, S1-S2. Abdomen: Obese. Extremities: Reveal evidence of chronic vascular insufficiency. LABORATORIES: Arterial blood gas reveals pH 7.32, pCO2 of 76, PO2 of 46. White blood count 16.2, hemoglobin 12.4, platelet count 375,000. Sodium 147, potassium 4.7, chloride 96 , bicarbonate 33, BUN 27, creatinine 1.2. ProBNP is elevated at 11,141. IMPRESSION: 52-year-old with severe combined heart and lung disease who has sustained a cardiopulmonary arrest. He has regained spontaneous circulation but has evidence of anoxic injury. His prognosis appears to be extremely poor. I spoke with the nurse, there have been no family at the bedside. CT scan was reviewed and along with a cardiac arrest he has evidence of pulmonary edema, pleural effusions, small amount of ascites and a fatty liver. PLAN: 1. Continue full ventilatory support and hemodynamic support. 2. Agree with neurology evaluation. 3. Overall prognosis appears to be extremely poor. Critical Care Time: One hour. cc: MD MANUELA Fowler
--- NOTE | 2018-03-17 01:12 | Extremity Venous Study ---
PROCEDURE NAME: Venous U/S Bilateral Legs - 03/16/2018 REFERRING PHYSICIAN: Jayson Carpenter MD. READING PHYSICIAN: Jarocho Machado MD. BIOFUELS PRODUCTION ASSOCIATE: Ford. INDICATION: Leg swelling and respiratory failure. FINDINGS: There is a nonocclusive thrombus in the distal right common femoral vein. Flow is present around it. Otherwise, the deep and superficial veins of both lower extremities were imaged. They were compressible, patent and without thrombus. INTERPRETATION: Nonoccluding DVT of the right common femoral vein. cc: MD Jayson Wilkins MD
[2018-03-17] MEDS: DUONEB (A & A) INH SCH ×6 (03:14→23:34)
[2018-03-17] MEDS: DOPAMINE 800 MG/D5W 800 MG/500 ML IV.SOLN IV SCH ×2 (04:55→14:36)
[2018-03-17] MEDS: PROTONIX IV SCH ×2 (04:56→17:12)
[2018-03-17 05:01] LABS: ALLEN TEST YES; BLOOD TYPE ARTERIAL; HCO3-(ACT) 33.4 mmoll (20.0-26.0); METHB 0.8 % (0.0-1.5); O2(CT) 18.1 mL/dL (15.0-23.0); O2HB 92.4 % (95.0-99.0); PO2(98.6) 66 mmHg (60-100); SAMPLE BLOOD; SRATE 18 BPM; THB 13.9 g/dL (11.5-17.4); TVOL 600 mL; pH(98.6) 7.44 (7.35-7.45)
[2018-03-17 05:02] LABS: PCO2(98.6) 55 mmHg (35-45)
[2018-03-17 05:03] LABS: MODALITY VENTILATOR
[2018-03-17] MEDS: HUMALOG SUBQ SCH ×4 (06:37→21:26)
[2018-03-17] MEDS: KEPPRA 750 MG in NS 100 ML IV SCH ×2 (06:37→18:39)
[2018-03-17 06:54] LABS: BASO# 0.06 X1000 (0.0-0.2); BASO% 0.4 % (0.0-0.8); EOS# 0.04 X1000 (0.0-0.7); EOS% 0.2 % (0.0-10.0); HEMATOCRIT 42.7 % (42.0-52.0); HEMOGLOBIN 12.8 g/dL (14.0-18.0); IMM GRAN# 0.05 X1000 (0.0-0.04); IMM GRAN% 0.3 % (0.0-0.5); LYMPH# 2.19 X1000 (1.2-3.4); LYMPH% 13.1 % (20.5-51.1); MCH 28.4 PG (27-31); MCV 94.9 FL (81-99); MONO# 1.83 X1000 (0.11-0.59); MONO% 10.9 % (1.7-9.3); MPV 9.8 FL (7.4-10.4); NEUT# 12.55 X1000 (1.4-6.5); NEUT% 75.1 % (42.2-75.2); PLT 420 X1000 (130-400); RDW 15.4 % (11.5-14.5); WBC 16.72 X1000 (4.8-10.8)
[2018-03-17 07:25] LABS: MAGNESIUM 1.8 mg/dL (1.5-2.7); PHOSPHORUS 6.2 mg/dL (2.7-4.5)
--- NOTE | 2018-03-17 07:35 | PROGRESS NOTE ---
DATE: 03/17/2018 SUBJECTIVE: This morning, Mr. Saini continues to be critically sick, intubated , and in the ICU. No family member was at the bedside at the time of the encounter. Per the nursing staff, he has been remarkably unresponsive for most part of the night. His blood pressures, however, have been fairly stable. OBJECTIVELY: His vital signs reveal blood pressure is 146/93, pulse is 114, respiration is 18, temperature is 98. On general exam, Mr. Camargo is a 52-year-old gentleman. He is in bed, intubated. HEENT: Mucosa is pink and moist. Anicteric. Acyanotic. Neck is supple. Chest: Good air entry bilateral. There is some crepitations posteriorly. Cardiovascular: Tachycardic but regular rate. GI: Abdomen is soft. Bowel sounds are present. No hepatosplenomegaly. There is a lot of edema on the abdominal wall. Extremities: About 2+ pedal edema. There is also edema all the way to the thighs. Musculoskeletal: There is erythematous scaly lesions on the extensor surfaces of the knees and elbows. BRUSHER: Patient seems to have a tonic deviation of the eye globe upwards. Pupils are midpoint size and sluggishly reactive. The patient will adopt a decerebrating extensor posturing upon painful stimulation, and he continues to have this twitching around the eyes and the mouth. There is positive gag reflex. LABORATORY DATA: WBC is 16.73, hemoglobin is 12.8, platelet count of 420,000. pH 7.44, pCO2 is 55. Chemistry is not ready at the time of the dictation. Blood cultures, urine cultures are still pending. MEDICATION: The patient is currently on 1. Dopamine drip. 2. Lovenox 40 mg subcutaneous daily. 3. Furosemide 40 mg IV b.i.d. 4. Levothyroxine is 750 q. 12. 5. Meropenem 1 g q. 8. 6. Vancomycin per pharmacy protocol. DIAGNOSTIC STUDIES: 1. A chest x-ray this morning continued to show remarkable infiltrates in both lung lal, worse in the right. There might be some edema associated. There is previous right clavicle orthopedic surgery. 2. The patient's troponin yesterday went up to 0.338. ASSESSMENT: 1. Status post cardiac arrest. 2. Comatose with current [place] Coma Scale of 5. The patient continues to have twitches/myoclonic facial movements, which I suspect is due to severe anoxic brain injury. The patient has not shown any changes neurologically over the course of 24 hours. 3. Acute hypoxemic respiratory failure. We will continue with mechanical ventilation. 4. Sqfdu-mp-pzynaby hypercarbic respiratory failure noted. 5. History of chronic obstructive pulmonary disease. 6. Congestive heart failure with ejection fraction of 15% to 20% percent likely in acute exacerbation. We will continue with the diuretic therapy. We actually are going to go up on the Lasix to 40 b.i.d. since the chest x-ray this morning looks remarkably worse. 7. Severe ischemic cardiomyopathy with critical circ stenosis on a recent left heart catheterization. The patient's troponins are going up. Unsure if it is demand or it is a true non- segment elevation myocardial infarction. Cardiology is on board. We will continue with aspirin, statin, and patient's other medications. 8. Hypotension. Etiology seems to be multifactorial but I think predominantly is cardiac; however, sepsis cannot be entirely ruled out, so we will continue with the current antibiotic coverage. Awaiting on the cultures, I will also do procalcitonin level. 9. Positive opioids and benzos on the urine toxicology noted. PLAN: In general, Mr. Saini continues to be remarkably sick. I had a very lengthy discussion with the family yesterday. They did not seem to know a lot about his medical problems because they had really lost contact with him for a very long time. I spoke with the daughter, the grandson, and the ex- . They were pending on the son to come for a decision to be made. We will continue engaging them in the dialogue and will continue with the current management that Mr. Saini is on. cc: Chip Javed MD Critical Time spent 45 minutes. MANUELA
--- NOTE | 2018-03-17 08:48 | Diag Imaging Result Doc PS360 ---
CHEST-PORTABLE - 03/17/2018 INDICATION: intubated COMPARISON: 03/16/2018 FINDINGS: Endotracheal tube is in good position. The temperature probe is coiled in the pharynx and the tip is up in the pharynx as well. The nasogastric tube appears to continue to the stomach. There is cardiomegaly and severe pulmonary vascular congestion. There is worsening diffuse infiltrate or effusion throughout the right lung. Stable consolidation/effusion at the left lung base. IMPRESSION: 1. Temperature probe is coiled in the pharynx, with the tip up in the pharynx. 2. Significant worsening infiltrate/effusion throughout the right lung. Electronically signed by Helio Law 03/17/2018 8:45 AM
[2018-03-17] MEDS ORDERED: ASPIRIN PR SCH (09:00)
[2018-03-17] MEDS: LASIX IV SCH ×2 (09:31→21:26)
[2018-03-17] MEDS: ASPIRIN PO SCH (09:31)
[2018-03-17] MEDS: MERREM 1 GM in NS 50 ML IV SCH ×2 (09:32→17:12)
[2018-03-17] MEDS: LOVENOX SUBQ SCH (09:32)
--- NOTE | 2018-03-17 09:59 | PULMONOLOGY PROGRESS NOTE ---
DATE: 03/17/2018 SUBJECTIVE: The patient remains on mechanical ventilation. He has repetitive eye blinking. He does not respond to voice. He may have a slight alteration in his ventilatory pattern with painful stimulation of a nail bed. OBJECTIVE: Vital Signs: BP 118/51, heart rate 119, respiratory rate 21, oxygen saturation 97%. Maximum temperature in the last 24 hours is 100.5 degrees. HEENT: Pupils are midpoint. Minimally reactive. He has a slight upward gaze. He will not focus on the examiner. Rhythmic blinking as described above. Oropharynx appears clear with endotracheal tube in place. Neck: Supple. Chest: Reveals diffuse rhonchi bilaterally. Cardiac exam: S1, S2. Abdomen: Obese and soft. Extremities: Cool to the touch. LABORATORIES: Arterial blood gas reveals a pH of 7.44, pCO2 of 55, PO2 of 66. His lactate level is normal. White blood count 16.72, hemoglobin 12.8, platelet count 420,000. Chest x-ray reveals infiltrates bilaterally with diffuse infiltrates through the right lung, pulmonary edema, increasing effusion on the right with severe vascular congestion. IMPRESSION: A 52 year old with severe combined heart and lung disease and generalized severe vasculopathy, who has sustained a cardiopulmonary arrest. Exam is consistent with an anoxic injury, although he may be having some underlying seizures. His prognosis prior to the event was poor and his overall chance of recovery is extremely low. I have reviewed Dr. Javed's notes and there have been some family at the bedside, but it appears that he has been estranged from these members for awhile. RECOMMENDATIONS: 1. Continue full ventilatory support. We will adjust the respiratory rate. 2. Continue Keppra for possible seizures. 3. Agree with broad-spectrum antibiotics. 4. End-of-life discussions with the family as they are available. His prognosis is extremely poor. Time spent in critical care management: 30+ minutes cc: Kj Hope MD [facility]
[2018-03-17] MEDS: VANCOMYCIN 1,750 MG in NS 250 ML IV SCH (11:14)
[2018-03-17] MEDS: TYLENOL PR PRN (17:12)
[2018-03-17] MEDS: DIPRIVAN 1% 1,000 MG/100 ML BOTTLE IV SCH (17:13)
[2018-03-17] MEDS: LIPITOR NG SCH (21:26)
[2018-03-18] MEDS: DIPRIVAN 1% 1,000 MG/100 ML BOTTLE IV SCH ×2 (00:17→14:27)
[2018-03-18] MEDS: MERREM 1 GM in NS 50 ML IV SCH ×3 (00:18→16:29)
[2018-03-18] MEDS: DUONEB (A & A) INH SCH ×6 (03:16→23:07)
[2018-03-18] MEDS: PROTONIX IV SCH ×2 (04:39→16:30)
[2018-03-18 04:50] LABS: ALLEN TEST YES; BE 14.1 mmoll (-3.0-3.0); BLOOD TYPE ARTERIAL; HCO3-(ACT) 35.9 mmoll (20.0-26.0); O2(CT) 14.8 mL/dL (15.0-23.0); O2HB 94.5 % (95.0-99.0); PCO2(98.6) 46 mmHg (35-45); PO2(98.6) 67 mmHg (60-100); SAMPLE BLOOD; SAO2 97.7 % (95.0-100.0); SRATE 18 BPM; THB 11.1 g/dL (11.5-17.4); TVOL 600 mL; pH(98.6) 7.53 (7.35-7.45)
[2018-03-18 04:51] LABS: MODALITY VENTILATOR
[2018-03-18 05:08] LABS: BASO# 0.02 X1000 (0.0-0.2); BASO% 0.2 % (0.0-0.8); EOS# 0.08 X1000 (0.0-0.7); EOS% 0.7 % (0.0-10.0); HEMATOCRIT 40.4 % (42.0-52.0); HEMOGLOBIN 12.4 g/dL (14.0-18.0); IMM GRAN# 0.04 X1000 (0.0-0.04); IMM GRAN% 0.3 % (0.0-0.5); LYMPH# 1.37 X1000 (1.2-3.4); LYMPH% 11.4 % (20.5-51.1); MCHC 30.7 g/dL (33-37); MCV 94.6 FL (81-99); MONO# 1.25 X1000 (0.11-0.59); MONO% 10.4 % (1.7-9.3); MPV 10.2 FL (7.4-10.4); NEUT# 9.29 X1000 (1.4-6.5); PLT 255 X1000 (130-400); RBC 4.27 XMIL (4.7-6.1); RDW 15.7 % (11.5-14.5); WBC 12.05 X1000 (4.8-10.8)
[2018-03-18 05:30] LABS: AGAP 14; ALB/GLOB RATIO 0.7; ALBUMIN 2.7 g/dL (3.5-5.0); ALKALINE PHOSPHATASE 73 U/L (32-122); BUN 37 mg/dL (8-22); CALCIUM 8.8 mg/dL (8.8-10.2); CHLORIDE 95 mmol/L (98-107); COSMO 295; ESTIMATED GFR > 60; GLUCOSE 129 mg/dL (70-104); GOT 35 U/L (10-34); GPT 15 U/L (10-44); PHOSPHORUS 4.6 mg/dL (2.7-4.5); POTASSIUM 3.9 mmol/L (3.5-5.1); SODIUM 143 mmol/L (136-145); TCO2 34 mmol/L (25-35); TOTAL BILIRUBIN 0.75 mg/dL (0.20-1.00); TOTAL PROTEIN 6.4 g/dL (6.3-8.3)
[2018-03-18] MEDS: KEPPRA 750 MG in NS 100 ML IV SCH ×2 (05:31→18:31)
[2018-03-18] MEDS: HUMALOG SUBQ SCH ×4 (06:10→21:18)
--- NOTE | 2018-03-18 07:27 | Diag Imaging Result Doc PS360 ---
CHEST-PORTABLE - 03/18/2018 INDICATION: intubated COMPARISON: 03/17/2018 FINDINGS: Stable endotracheal tube, nasogastric tube, and temperature probe. Stable severe cardiomegaly and pulmonary vascular congestion. There is improvement in the lung volumes and the dense infiltrate throughout the right lung. Stable significant consolidation at the left lung base. IMPRESSION: Improved aeration of the right lung. Electronically signed by Helio Law 03/18/2018 7:24 AM
[2018-03-18] MEDS: LOVENOX SUBQ SCH (08:08)
[2018-03-18] MEDS: LASIX IV SCH ×2 (08:08→21:18)
[2018-03-18] MEDS: ASPIRIN PO SCH (08:08)
--- NOTE | 2018-03-18 09:27 | PROGRESS NOTE ---
DATE: 03/18/2018 SUBJECTIVE: This morning Mr. Saini continues to be remarkably sick, intubated and sedated on propofol. No remarkable changes overnight. OBJECTIVE: Vital signs: Blood pressure is 102/67, pulse is 98, respirations 21 , temperature is 97.1 degrees. General: Mr. Saini is a 52-year-old gentleman. He is in bed. He is still intubated. Mucosa is pink and moist. No icterus and no cyanosis. Neck: Supple. There was no JVD. Chest: Air entry is bilaterally reduced. Some distant crackles posteriorly. Cardiovascular: Regular rate and rhythm. I did not appreciate any murmurs or rubs or gallops. GI: Abdomen is soft. It is distended. A little tympanic on percussion. There is an old infraumbilical surgical scar and there is an umbilical hernia in place. DESULFURIZER HAND: Patient is still verbally unresponsive. He continues posturing with upper extremity extension on painful stimulation. He will withdraw, however, his lower extremities from painful stimulation. The pupils are equal and they are reactive and he does have gag reflex. I did not see him track. Musculoskeletal: There are erythematous scaly lesions on the extensor surfaces of the knees and elbows. LABORATORY DATA: WBC is 12.05, hemoglobin is 12.4, platelet count of 255,000. Chemistry is also reviewed. Sodium is 143, potassium is 3.9, chloride is 95, BUN is 37, creatinine is 1. Liver enzymes are normal. DIAGNOSTIC STUDIES: A chest x-ray this morning shows improved aeration of the right lung. There is stable significant consolidation at the left lung base. CURRENT MEDICATIONS: 1. Albuterol nebulizers. 2. Aspirin 81 mg daily. 3. Atorvastatin 40 mg daily. 4. Lovenox. 5. Lasix 40 IV b.i.d. 6. Insulin, sliding scale. 7. Levothyroxine 750 q.12h. Meropenem 1 g q.8h. 1. Vancomycin per pharmacy protocol. INPUT AND OUTPUT: Urine output was 5825. He has a negative balance of 4498. ASSESSMENT: 1. Status post cardiac arrest. Initial rhythm was asystole as per report from [facility]. 2. Comatose with a GCS of 6. The patient does not have any more of the twitches and the myoclonic facial movements. I think he might have suffered a severe anoxic brain injury. Neurologically he has not shown any improvement except that there are no more twitches and he seems to now withdraw from painful stimulation on the lower extremities. 3. Acute hypoxemic respiratory failure. Patient continues to be on mechanical ventilation. 4. Acute on chronic congestive heart failure with ejection fraction of 15-20%. We will continue with the diuretic therapy. 5. Severe ischemic cardiomyopathy with critical stenosis on recent left heart catheterization. 6. Hqf-VD-pstlyvjaw myocardial infarction. The patient is on aspirin and statin. Cardiology is on board. 7. Hypotension, presumably combination of cardiogenic shock and possible sepsis. 8. Positive opioids and benzodiazepines on urine toxicology. 9. Erythematous, scaly lesions on extensor surfaces suggestive of psoriasis. PLAN: So in general, I think Mr. Saini continues to be fairly the same. No significant neurological improvement. We are going to continue with the current care, including ventilator support, antibiotics and diuretic therapy for the congestive heart failure. The patient is being followed up by Pulmonary Medicine and Cardiology and I am still pending a family meeting today to discuss about the care going forward. Mr. Saini continues to be with severe anoxic brain injury secondary to cardiac arrest and his prognosis is remarkably poor. cc: Chip Javed MD [facility]
--- NOTE | 2018-03-18 10:52 | PULMONOLOGY PROGRESS NOTE ---
DATE: 03/18/2018 SUBJECTIVE: The patient has some spontaneous movement of his lower extremities. He may respond to pain. Pupils are mildly dilated, but respond to light. OBJECTIVE: The patient has been afebrile for the last 24 hours.Vital signs: Blood pressure 102/67, heart rate 101, respiratory rate 25, oxygen saturation 96% on mechanical ventilation. His dopamine has been titrated down. HEENT: Pupils are reactive. Oropharynx appears dry. Neck: Supple. Chest: Reveals coarse rhonchi bilaterally. Cardiac: S1-S2. Abdomen: Soft. Extremities: Are cool to the touch. LABORATORIES: White blood count 12.05, hemoglobin 12.4, platelet count 255, 000. Sodium 143, potassium 3.9, chloride 95, bicarbonate 34, BUN 37, creatinine 1, glucose 129. Arterial blood gas, pH 7.53, pCO2 of 46, PO2 of 67. Tidal volume 600, respiratory rate 18, PEEP of 5. IMAGING: Chest x-ray reveals cardiomegaly, vascular congestion, effusion versus consolidation, right greater than left. Sputum cultures reveal marked growth. IMPRESSION: A 52-year-old with severe combined heart and lung disease, significant peripheral vascular disease, who has sustained a cardiopulmonary arrest. The patient's rhythmic movements are not present this morning. He does not arouse to voice, but does respond to pain and does have some movement. Anoxic injury is suspected. The patient has evidence of acute hypoxemic respiratory failure, pneumonia, with possible need seizures. RECOMMENDATIONS: 1. Continue ventilatory support. Patient's PEEP will be increased and his minute ventilation will be decreased. 2. Continue Keppra for possible seizures. 3. Continue broad-spectrum antibiotics. 4. Overall prognosis remains poor, but he has had some improvement in his neurologic status over the last 24 hours. Time spent critical care: 30+ minutes cc: Kj Hope MD [facility]
[2018-03-18] MEDS: VANCOMYCIN 1,750 MG in NS 250 ML IV SCH (11:09)
--- NOTE | 2018-03-18 14:04 | PROGRESS NOTE ---
DATE: 03/18/2018 SUBJECTIVE: I had a family meeting with the son, the daughter and the ex- and also present was a [id number]. We did go over Mr. Saini's previous medical history. I understand according to the son, Mr. Saini was a DNR level 1 in his previous hospitalization at [place]. However, today they have not made a decision yet and they would prefer that the EEG be done tomorrow and see what is going on in the brain before any further decision is made. They are very well aware about the critical and poor prognostic nature of Mr. Saini at this point. The son has been signed as the decision maker by the mother (the ex- of Mr. Saini). So as it states now, Mr. Saini continues to be Full Code and if anything should happen, the son is the 1st contact to be reached. We will be pending the result of the EEG and further Neurology recommendations and then go from there. cc: Chip Javed MD
[2018-03-18] MEDS: LIPITOR NG SCH (21:18)
[2018-03-19] MEDS: DIPRIVAN 1% 1,000 MG/100 ML BOTTLE IV SCH ×3 (00:41→20:46)
[2018-03-19] MEDS: MERREM 1 GM in NS 50 ML IV SCH ×4 (00:41→23:16)
[2018-03-19] MEDS: DUONEB (A & A) INH SCH ×6 (03:17→23:38)
[2018-03-19] MEDS: PROTONIX IV SCH ×2 (04:34→15:52)
[2018-03-19] MEDS: TYLENOL PR PRN ×2 (04:34→10:09)
[2018-03-19 05:22] LABS: ALLEN TEST YES; BE 14.9 mmoll (-3.0-3.0); BLOOD TYPE ARTERIAL; HCO3-(ACT) 36.5 mmoll (20.0-26.0); O2(CT) 12.2 mL/dL (15.0-23.0); O2HB 95.1 % (95.0-99.0); PCO2(98.6) 43 mmHg (35-45); PO2(98.6) 90 mmHg (60-100); SAMPLE BLOOD; SAO2 95.8 % (95.0-100.0); SRATE 12 BPM; TVOL 600 mL
[2018-03-19 05:23] LABS: MODALITY VENTILATOR; pH(98.6) 7.56 (7.35-7.45)
[2018-03-19 05:42] LABS: BASO# 0.02 X1000 (0.0-0.2); BASO% 0.2 % (0.0-0.8); EOS# 0.03 X1000 (0.0-0.7); EOS% 0.4 % (0.0-10.0); HEMATOCRIT 35.3 % (42.0-52.0); HEMOGLOBIN 10.8 g/dL (14.0-18.0); LYMPH# 1.27 X1000 (1.2-3.4); MCHC 30.6 g/dL (33-37); MCV 94.6 FL (81-99); MONO# 1.07 X1000 (0.11-0.59); MONO% 12.6 % (1.7-9.3); NEUT# 6.08 X1000 (1.4-6.5); NEUT% 71.8 % (42.2-75.2); PLT 306 X1000 (130-400); RBC 3.73 XMIL (4.7-6.1); RDW 15.8 % (11.5-14.5); WBC 8.47 X1000 (4.8-10.8)
[2018-03-19] MEDS: KEPPRA 750 MG in NS 100 ML IV SCH (06:13)
[2018-03-19] MEDS: HUMALOG SUBQ SCH ×4 (06:24→20:41)
[2018-03-19 06:28] LABS: AGAP 16; ALB/GLOB RATIO 0.9; ALBUMIN 2.9 g/dL (3.5-5.0); ALKALINE PHOSPHATASE 74 U/L (32-122); BUN 34 mg/dL (8-22); CALCIUM 8.9 mg/dL (8.8-10.2); CHLORIDE 94 mmol/L (98-107); COSMO 290; CREATININE 0.9 mg/dL (0.7-1.2); ESTIMATED GFR > 60; GLUCOSE 123 mg/dL (70-104); GOT 59 U/L (10-34); GPT 17 U/L (10-44); PHOSPHORUS 3.8 mg/dL (2.7-4.5); POTASSIUM 3.7 mmol/L (3.5-5.1); SODIUM 141 mmol/L (136-145); TCO2 31 mmol/L (25-35); TOTAL BILIRUBIN 0.92 mg/dL (0.20-1.00); TOTAL PROTEIN 6.3 g/dL (6.3-8.3)
--- NOTE | 2018-03-19 06:58 | Diag Imaging Result Doc PS360 ---
EXAM: CHEST-PORTABLE HISTORY: intubated TECHNIQUE: Portable chest single view COMPARISON: 03/18/2018 FINDINGS: No change in the endotracheal tube or nasogastric tube. There are at least small bilateral pleural effusions. There is vascular distention with cardiomegaly. Atelectasis remains in the lower lungs. IMPRESSION: No interval improvement. Electronically signed by Thiago Dhaliwal 03/19/2018 6:56 AM
[2018-03-19] MEDS: LOVENOX SUBQ SCH (09:00)
[2018-03-19] MEDS: LASIX IV SCH ×2 (09:00→20:47)
[2018-03-19] MEDS: ASPIRIN PO SCH (09:00)
[2018-03-19] MEDS: VANCOMYCIN 1,750 MG in NS 250 ML IV SCH (10:04)
[2018-03-19] MEDS: CLINIMIX E 4.25%-5% SOLUTION 1,000 ML IV SCH ×2 (10:09→23:17)
--- NOTE | 2018-03-19 10:10 | PROGRESS NOTE ---
DATE: 03/19/2018 SUBJECTIVE: This morning Mr. Saini continues to be fairly stable but critical on the ventilator. Per the nursing staff, the night was uneventful. Mr. Saini himself is not able to give me an interval history. OBJECTIVE: Vital signs: Blood pressure is 106/59, pulse is 106, respirations 12, temperature is 100.9 degrees. General: Mr. Saini is a 52-year-old male. He is in bed, intubated and sedated on propofol. Seems to be synchronizing well with the ventilator. HEENT: Mucosa is pink and moist. Anicteric. Acyanotic. Neck: Supple. Chest: Air entry is bilaterally reduced. There are crepitations posteriorly. Cardiovascular: Regular rate and rhythm. No murmurs. No rubs. No gallops. GI: Abdomen is soft. It is distended, slightly tympanic. Bowel sounds are hypoactive. There is an old infraumbilical surgical scar and there is an umbilical hernia in place. There is edema on the lateral aspect of the abdominal wall. DESIGN LEAD: The patient is verbally unresponsive. There is spontaneous eye opening. The eye globes are deviated upwards. Pupils are midsize but they are reactive. There is also a gag reflex. The patient continues to extensively posture to painful stimulation. He also has spontaneous movement of the left lower extremity. Musculoskeletal: There are erythematous, scaly lesions on the extensor surfaces of the knees and the elbows. LABORATORY DATA: WBC is down to 8.47, hemoglobin is 10.8, platelet count of 306 ,000. Chemistry is reviewed. Sodium is 141, potassium is 3.7, chloride 94, bicarb is 31, glucose is 127. AST and ALT are normal. ABG, pH 7.56, pCO2 is 43, PO2 is 90. IMAGING STUDIES: A chest x-ray shows small bilateral pleural effusions, vascular distention with cardiomegaly. Atelectasis remains in the lower lungs. No interval improvement. ASSESSMENT: 1. Status post cardiac arrest. Initial rhythm is said to have been asystole. The patient came from [facility]. Currently comatose with a GCS of 6-7. The patient does not have any more facial twitches. He does have spontaneous movement of the left lower extremity. Pupils are reactive and patient has a gag reflex. However, he is still not interacting. I think he has suffered a significant anoxic brain injury. We are pending an EEG this morning and neurology evaluation. 2. Acute hypoxemic respiratory failure. Patient continues to be on mechanical ventilation. Pulmonary Medicine is on board. 3. Acute on chronic congestive heart failure with ejection fraction of 15 to 20% . The patient does have remarkable edema, especially around the abdomen and the upper thighs. We will continue with the diuretic therapy. 4. Severe ischemic cardiomyopathy with critical stenosis of the circumflex and the second diagonal arteries. The patient did have stenosis in almost all the 3 vessels. He is currently on aspirin and statin. Cardiology on board. 5. [id number]-FB-[id number] myocardial infarction. Will continue with Cardiology's recommendations. 6. Hypotension. This is presumed to be cardiogenic shock with possible sepsis component as well. The patient was on dopamine at some point, which has been discontinued. 7. Erythematous, scaly lesions on the skin, suggestive of psoriasis. 8. Do not resuscitate status. The patient is for now full code. PLAN: So in general, Mr. Saini was admitted from to the hospital on 2018. Today is day 3 of hospitalization. He comes from [facility] and he presented because of cardiac arrest. He is currently stable on the ventilator. However, he remains critically sick. He is suspected to have severe anoxic brain injury secondary to the cardiac arrest and we presume that he might have had a non-STEMI leading to the cardiac arrest. At this point, we are going to continue the recommendations from Cardiology and Pulmonary Medicine. We are pending any further recommendations from Neurology as well. I had a lengthy discussion with the family (son, daughter, [id number], and ex-) yesterday and they plan to continue with full care and they will make a decision on a daily basis. We will get Palliative Medicine to see him. The patient's disposition is going to depend on the rest of the hospital course. It should be stated that Mr. Saini continues to be remarkably sick, extremely critical, with very poor prognosis because of severe coronary artery disease, bad congestive heart failure, and anoxic brain injury, on top of all the comorbidities with suspicion of maybe some infection component. cc: MD MANUELA Briggs
--- NOTE | 2018-03-19 10:13 | PULMONOLOGY PROGRESS NOTE ---
DATE: 03/19/2018 SUBJECTIVE: The patient is randomly raising his right and left legs. He does grimace to painful stimuli. He does have spontaneous respiratory effort. OBJECTIVE: Vital Signs: Maximum temperature in the last 24 hours was 100.9 degrees. Blood pressure 106/59, heart rate 106, respiratory rate 20, oxygen saturation 96%. HEENT: Pupils are equal and reactive but he has a slight upward gaze. Oropharynx appears dry. Neck: Supple. Chest: Reveals coarse rhonchi bilaterally. Cardiac Examination: S1-S2. Abdomen: Obese and soft. Extremities: Reveal chronic vascular disease. Laboratories: Chest x-ray reveals infiltrates, right greater than left, with cardiomegaly and vascular distention, unchanged from yesterday. Arterial blood gas reveals a pH of 7.56, a pCO2 of 43, a PO2 of 90. Sputum cultures reveal no new data. IMPRESSION: A 52-year-old with severe combined heart and lung disease, severe peripheral vascular disease, status post cardiopulmonary arrest. The patient has bilateral pneumonia, likely related to an aspiration event. He has acute hypoxemic and acute hypercapnic respiratory failure. Possible seizures had been noted earlier but are not clinically evident at this juncture. He has had some marginal neurologic improvement over the last 48 hours but a significant anoxic event is suspected. He continues to require a significant amount of oxygen and high PEEP. RECOMMENDATIONS: 1. Continue current ventilatory support pending improvement in arterial blood gases. 2. Continue Keppra. 3. Continue broad-spectrum antibiotics. 4. We will add a nutrition source in the form of Clinimix. Bowel sounds are still extremely quiet but if he continues to improve, tube feeds will be added in the near future. 5. Anticipation of EEG tomorrow. The patient clinically is not brain and diffuse slowing is suspected. Time spent in critical care of 30 plus minutes. cc: Kj Hope MD
--- NOTE | 2018-03-19 14:26 | PROGRESS NOTE ---
DATE: 03/19/2018 LOCATION: ICU bed 12. SUBJECTIVE: Mr. Saini has shown some spontaneous movement in the legs. PHYSICAL EXAMINATION: On exam now, he has good lateral eye movement with passive head turning. Both pupils react to bright light. There is sluggish corneal reflex present bilaterally. IMAGING: His EEG shows a burst suppression pattern. This is consistent with anoxic encephalopathy. PLAN: He has been managed with levetiracetam 750 mg IV q.12 hours. I will empirically increase that dose based on the EEG findings. I have not seen the facial muscle twitching today that was present when I saw him 3 days ago. Further plans will depend on his clinical course. Thanks for asking Neurology to see Mr. Saini. cc: MD MANUELA Palumbo III
[2018-03-19] MEDS: KEPPRA 1,000 MG in NS 100 ML IV SCH (14:39)
--- NOTE | 2018-03-19 15:45 | EEG REPORT ---
DATE: 03/19/2018 REFERRING PHYSICIAN: Dr. Javed FISH CONSERVATIONIST: Fernandez Lucio BACKGROUND INFORMATION AND TECHNIQUE: This is a digitally recorded portable routine EEG with video. HISTORY: This is a 52-year-old male patient status post cardiac arrest. EEG is ordered to detect evidence of seizures. MEDICATIONS: Low dose propofol which was held 2 minutes prior to the start of the study. EEG FINDINGS: A posteriorly dominant alpha rhythm is notably absent. The background consists of continuous 10 to 11 hertz activity seen diffusely and with poor reactivity. Generalized periodic epileptiform discharges (GPEDs) are seen throughout the study at times as frequent as 2, nearly 3 per second briefly. No definite electrographic seizures. No definite persistent focal slowing. Hyperventilation was not performed. Photic stimulation did not alter the record. No definite drowsiness patterns. Stage II sleep is not seen. EKG demonstrates regular intervals. IMPRESSION AND CLINICAL CORRELATION: Abnormal routine EEG due to diffuse alpha rhythm with generalized periodic epileptiform discharges (GPEDs). GPEDs are suggestive of cortical irritability and possess epileptogenic potential. Diffuse alpha rhythm is suggestive of alpha coma in the right clinical context. No definite electrographic seizures are seen during the study. Clinical correlation is recommended. cc: MD Chip Garcia MD [facility]
[2018-03-19] MEDS: SODIUM CHLORIDE 0.9% INJ SCH (15:52)
[2018-03-19] MEDS: LIPITOR NG SCH (20:47)
[2018-03-20] MEDS: KEPPRA 1,000 MG in NS 100 ML IV SCH ×2 (02:34→14:35)
[2018-03-20] MEDS: DIPRIVAN 1% 1,000 MG/100 ML BOTTLE IV SCH ×5 (02:35→23:37)
[2018-03-20] MEDS: DUONEB (A & A) INH SCH ×6 (03:40→23:13)
[2018-03-20] MEDS: PROTONIX IV SCH ×2 (04:18→16:20)
[2018-03-20 04:36] LABS: ALLEN TEST YES; BE 11.5 mmoll (-3.0-3.0); BLOOD TYPE ARTERIAL; HCO3-(ACT) 33.9 mmoll (20.0-26.0); METHB 0.4 % (0.0-1.5); O2(CT) 15.2 mL/dL (15.0-23.0); O2HB 97.4 % (95.0-99.0); PO2(98.6) 134 mmHg (60-100); SAMPLE BLOOD; SAO2 99.6 % (95.0-100.0); SRATE 12 BPM; THB 10.9 g/dL (11.5-17.4); TVOL 600 mL; pH(98.6) 7.46 (7.35-7.45)
[2018-03-20 04:38] LABS: MODALITY VENTILATOR; PCO2(98.6) 52 mmHg (35-45)
[2018-03-20 05:47] LABS: AGAP 13; ALB/GLOB RATIO 0.8; ALBUMIN 2.9 g/dL (3.5-5.0); ALKALINE PHOSPHATASE 66 U/L (32-122); BUN 38 mg/dL (8-22); CALCIUM 8.3 mg/dL (8.8-10.2); CHLORIDE 96 mmol/L (98-107); COSMO 292; CREATININE 0.9 mg/dL (0.7-1.2); ESTIMATED GFR > 60; GLUCOSE 136 mg/dL (70-104); GOT 70 U/L (10-34); GPT 16 U/L (10-44); POTASSIUM 3.4 mmol/L (3.5-5.1); SODIUM 141 mmol/L (136-145); TCO2 32 mmol/L (25-35); TOTAL BILIRUBIN 0.73 mg/dL (0.20-1.00); TOTAL PROTEIN 6.5 g/dL (6.3-8.3)
[2018-03-20] MEDS: HUMALOG SUBQ SCH ×4 (05:59→20:08)
--- NOTE | 2018-03-20 07:15 | Diag Imaging Result Doc PS360 ---
EXAM: CHEST-PORTABLE 03/20/2018 HISTORY: dyspnea TECHNIQUE: AP portable at 0545 COMMENT: There is hazy opacity over the entire right lung with areas of platelike opacity in the mid lung, probably in the middle lobe. There is retrocardiac opacity. Compared to 03/19/2018 considering differences in technical factors there has been no significant change. IMPRESSION: Pulmonary edema with atelectasis versus pneumonia particularly in the left lower lobe. Electronically signed by Jimmy Dunlap 03/20/2018 7:13 AM
[2018-03-20] MEDS: LOVENOX SUBQ SCH (08:02)
[2018-03-20] MEDS: LASIX IV SCH ×2 (08:02→20:07)
[2018-03-20] MEDS: ASPIRIN PO SCH (08:02)
[2018-03-20] MEDS: MERREM 1 GM in NS 50 ML IV SCH ×3 (08:08→23:37)
[2018-03-20] MEDS ORDERED: NS 50 ML ONE (08:13)
--- NOTE | 2018-03-20 11:16 | PROGRESS NOTE ---
DATE: 03/20/2018 SUBJECTIVE: The patient is sedated on the ventilator. No acute issues noted as per nursing staff overnight. OBJECTIVE: Vitals: Temperature 99.8, heart rate 104, respiratory rate 18, blood pressure 129/72, O2 saturation 97% on mechanical ventilator with FiO2 of 60%. General Examination: This is a chronically ill-looking and frail, 52-year-old male, lying in bed, sedated and intubated on propofol. HEENT: Head is normocephalic, atraumatic. Mucous membranes dry. Neck: No JVD noted. No carotid bruits. No lymphadenopathy. Cardiovascular exam: S1, S2 heard. No murmurs, gallops, or rubs. Regular rate and rhythm. Respiratory exam: Decreased breath sounds globally with still some crackles in both pulmonary bases. Patient is not using any accessory muscles or having work of breathing. Abdomen: Soft. Mildly distended. Tympanic, but nontender to palpation. Bowel sounds present by hypoactive. No organomegaly noted. There is mild edema in the lateral aspect of the abdominal wall. Extremities: Erythematous scaly lesions on the extensor surface of the knees and elbows. Mild edema noted too. Neurological exam: The patient is unresponsive. Light reflex present. Responds to painful stimuli. There is also noted spontaneous movement of the left lower extremity. LABORATORY DATA: Labs from today shows ABG with pH 7.46 with pCO2 52, PO2 134 with BMP that shows sodium 141, potassium 3.4, chloride 96, creatinine 38. AST 21, ALT 70. ASSESSMENT AND PLAN: 1. Status post cardiac arrest secondary to non ST-segment elevation myocardial infarction. The patient continues to be comatose with GCS of 627. The patient has been evaluated by Neurology and the EEG showed anoxic brain injury. Patient's family has been updated about the clinical situation of the patient. 2. Acute hypoxemic respiratory failure. Unfortunately, he continues to require high amount of oxygen. Today, the FiO2 is 60%. We will continue with the same management. 3. Acute on chronic congestive heart failure with ejection fraction of 15 to 20 percent. The patient has edema in abdomen and upper thigh. The patient is on diuretics. We will continue with the same management. 4. Severe ischemic cardiomyopathy with critical stenosis of circumflex by ulnar arteries. The patient is on aspirin and statin. Cardiology following this patient. We will follow recommendations. 5. Hypotension. We are not sure about the source of this shock. Most likely it is cardiogenic shock with possible septic component. Not on any vasopressors anymore. 6. Code status: Patient is full code by now. 7. Prognosis: Unfortunately this patient has anoxic brain injury and, considering his comorbidities like the recent non ST-segment elevation myocardial infarction and severe ischemic cardiomyopathy, his prognosis of survival is really, really poor. Family had been informed yesterday. We will see what they have to say in the next few days. We will continue to monitor this patient closely. cc: Jayson Milner MD
[2018-03-20] MEDS: VANCOMYCIN 1,750 MG in NS 250 ML IV SCH (11:29)
[2018-03-20] MEDS: CLINIMIX E 4.25%-5% SOLUTION 1,000 ML IV SCH ×2 (12:46→23:37)
--- NOTE | 2018-03-20 14:08 | PULMONOLOGY PROGRESS NOTE ---
DATE: 03/20/2018 SUBJECTIVE: Patient does not respond to pain. He is on no vasopressors. OBJECTIVE: Vital Signs: Maximum temperature in the last 24 hours 100.9 degrees. HEENT: Pupils are equal. There is some lateral gaze. Oropharynx appears dry. Neck: Supple. Chest: Reveals prolonged expiratory phase with some patient ventilator desynchrony noted. Cardiac exam: Distant heart sounds. Normal S1, normal S2. Abdomen: Obese. No bowel sounds are present. Extremities: Reveal chronic vascular insufficiency. LABORATORY: Chest x-ray reveals increased vascular markings with pulmonary infiltrates right greater than left. There is some distortion to the film due to the cooling blanket. Sputum cultures revealed sparse growth of normal lore. Arterial blood gas reveals a pH 7.46, pCO2 of 52, pO2 of 134. IMPRESSION: A 52-year-old with: 1. Severe combined heart and lung disease. 2. Peripheral vascular disease. 3. Status post cardiopulmonary arrest. 4. Clinical exam is consistent with anoxic brain injury. His oxygen requirements are marginally improved. His overall prognosis appears to be poor. PLAN: 1. Continue ventilatory support and wean as tolerated. 2. Continue anti-epileptic medications. 3. Continue broad-spectrum antibiotics. 4. Overall prognosis is poor. End of life discussions in progress. Time spent critical care: 30+ minutes cc: Kj Hope MD [facility]
--- NOTE | 2018-03-20 15:31 | PROGRESS NOTE ---
DATE: 03/20/2018 SUBJECTIVE: The patient is in ICU bed 12. Mr. Saini has not had much changed clinically. OBJECTIVE: On my exam now, the pupils are large, but both react to bright light. Corneal reflex is minimal, but present bilaterally. I did not see definite lateral eye movement with passive head turning. I did not see any spontaneous limb movement. IMPRESSION: Remains likely anoxic brain injury, likely irreversible. Levetiracetam dose was increased empirically yesterday based on the EEG findings. I do not see any clinical evidence of seizure now. I do not have any new suggestion from a neurologic standpoint. I agree that the prognosis is very poor. Thanks for asking Neurology to see Mr. Saini. cc: Ja Roger III, MD [facility]
[2018-03-20] MEDS: LIPITOR NG SCH (20:07)
[2018-03-21] MEDS: DUONEB (A & A) INH SCH ×6 (03:05→23:10)
[2018-03-21 04:41] LABS: HEMATOCRIT 36.9 % (42.0-52.0); HEMOGLOBIN 11.1 g/dL (14.0-18.0); MCH 28.9 PG (27-31); MCHC 30.1 g/dL (33-37); MCV 96.1 FL (81-99); MPV 10.2 FL (7.4-10.4); RBC 3.84 XMIL (4.7-6.1); RDW 15.5 % (11.5-14.5); WBC 8.52 X1000 (4.8-10.8)
[2018-03-21] MEDS: CLINIMIX E 4.25%-5% SOLUTION 1,000 ML IV SCH ×2 (04:54→13:49)
[2018-03-21] MEDS: KEPPRA 1,000 MG in NS 100 ML IV SCH ×2 (04:59→13:48)
[2018-03-21] MEDS: PROTONIX IV SCH ×2 (04:59→15:42)
[2018-03-21 05:05] LABS: ALLEN TEST YES; BE 12.7 mmoll (-3.0-3.0); BLOOD TYPE ARTERIAL; HCO3-(ACT) 34.8 mmoll (20.0-26.0); METHB 1.2 % (0.0-1.5); O2(CT) 15.7 mL/dL (15.0-23.0); O2HB 96.6 % (95.0-99.0); PO2(98.6) 138 mmHg (60-100); SAMPLE BLOOD; SAO2 99.5 % (95.0-100.0); SRATE 12 BPM; THB 11.4 g/dL (11.5-17.4); TVOL 800 mL; pH(98.6) 7.48 (7.35-7.45)
[2018-03-21 05:08] LABS: MODALITY VENTILATOR; PCO2(98.6) 51 mmHg (35-45)
[2018-03-21 05:18] LABS: MAGNESIUM 2.1 mg/dL (1.5-2.7); PHOSPHORUS 3.6 mg/dL (2.7-4.5)
[2018-03-21 05:22] LABS: AGAP 13; ALB/GLOB RATIO 0.8; ALBUMIN 2.9 g/dL (3.5-5.0); ALKALINE PHOSPHATASE 68 U/L (32-122); BUN 32 mg/dL (8-22); CALCIUM 8.2 mg/dL (8.8-10.2); CHLORIDE 95 mmol/L (98-107); COSMO 288; CREATININE 0.7 mg/dL (0.7-1.2); ESTIMATED GFR > 60; GLUCOSE 124 mg/dL (70-104); GOT 69 U/L (10-34); GPT 15 U/L (10-44); POTASSIUM 3.8 mmol/L (3.5-5.1); SODIUM 140 mmol/L (136-145); TCO2 32 mmol/L (25-35); TOTAL BILIRUBIN 0.54 mg/dL (0.20-1.00); TOTAL PROTEIN 6.7 g/dL (6.3-8.3)
[2018-03-21] MEDS: HUMALOG SUBQ SCH ×4 (06:59→20:52)
--- NOTE | 2018-03-21 07:24 | Diag Imaging Result Doc PS360 ---
EXAM: CHEST-PORTABLE INDICATION: dyspnea TECHNIQUE: One view COMPARISON: 03/20/2018 FINDINGS: Support tubes and lines appear to be in stable position. Diffuse opacification of the right lung appears to be slightly worse than the previous study. Retrocardiac consolidation is approximately stable. No other new consolidation is identified. Cardiac silhouette is stable. IMPRESSION: Interval slight worsening on the right. Electronically signed by Kush Soto 03/21/2018 7:22 AM
--- NOTE | 2018-03-21 07:34 | PROGRESS NOTE ---
DATE: 03/21/2018 SUBJECTIVE: The patient continues to be sedated on ventilator. No acute issues noted as per nursing staff overnight. OBJECTIVE: Vital Signs: Temperature 99.1 degrees, heart rate 99, respiratory rate 12, blood pressure 129/86, O2 saturation 95% on 60% mechanical ventilator. General: This is a chronically ill-looking, frail, 52-year-old, male, lying in bed, sedated and intubated with propofol. HEENT: Head is normocephalic, atraumatic. Mucous membranes dry. Neck: No JVD noted. No carotid bruits. No lymphadenopathy. Cardiovascular: S1, S2 heard. No murmurs, gallops, or rubs. Regular rate and rhythm. Respiratory: Decreased breath sounds globally , and also some crackles and coarse breath sounds noted in both pulmonary bases. The patient is not using any accessory muscles or having work of breathing. Abdomen: Soft, a little distended and tympanic, but apparently nontender to palpation. Bowel sounds present, but hypoactive. No organomegaly noted. Mild edema noted in the lateral aspect of the abdominal wall. Extremities: There is some erythematosus scaly lesions on the extensor surface of the knee and elbows. Mild edema in both lower extremities noted too. Neurological: The patient is unresponsive. Pupils are mydriatic. Responds to painful stimuli only. There are no spontaneous movements noted on my examination. LABORATORY DATA: White cell count 8.52, hemoglobin 11.1, hematocrit 36.9, platelets 271,000. ABG shows pH 7.48 with pCO2 of 51, PO2 of 138 on ventilator, FiO2 of 60%. BMP is unremarkable. Glucose 124. ASSESSMENT AND PLAN: 1. Acute hypoxemic respiratory failure. Unfortunately, this patient is not improving. Since admission, that was 5 days ago when he required oxygen of 100%, today is 60% FiO2. At this point, we will continue with the same management. Pulmonary managing ventilator. 2. Status post cardiac arrest secondary to non ST-segment elevation myocardial infarction. Unfortunately, this patient continues to be comatose. His GCS continues to be 6 to 7. Neurology is following this patient, and they also think that this is severe anoxic brain injury. At this point, family has been updated about the results, and thinking about further goals of care. 3. Acute on chronic congestive heart failure with ejection fraction of 15% to 20 %. The patient continues to have signs of volume overload; in this case, edema in abdominal wall and tight. The patient is on diuretics. There has not been major clinical improvement. Will continue with the same management. 4. Ischemic cardiomyopathy with critical stenosis of circumflex arteries. The patient is on aspirin and statin. Cardiology following this patient. 5. Hypertension. At this point, the blood pressure is better, not requiring any vasopressors. Will continue with the same management. 6. Code status. Full code. 7. Prognosis. I think this patient has a very poor prognosis considering that he has severe anoxic encephalopathy. He has also severe congestive heart failure with low ejection fraction of 15% to 20%, and with that number, I think it will be very difficult to survive this episode. The patient is a full code as of now. Will talk with the family about goals of care because if they wish this patient to continue to be intubated, we may need to consider tracheostomy. From my standpoint, I think this patient is not going to survive this episode. Will continue to monitor this patient closely. cc: Jayson Mliner MD [facility]
[2018-03-21] MEDS: MERREM 1 GM in NS 50 ML IV SCH ×3 (08:57→23:23)
[2018-03-21] MEDS: LASIX IV SCH ×2 (08:57→20:51)
[2018-03-21] MEDS: ASPIRIN PO SCH (08:57)
[2018-03-21] MEDS: LOVENOX SUBQ SCH (08:57)
--- NOTE | 2018-03-21 09:48 | PROGRESS NOTE ---
DATE: 03/21/2018 SUBJECTIVE: The patient is in ICU bed 12. Mr. Saini continues clinically unchanged. OBJECTIVE: There is slight lateral eye movement with passive head turning. Pupils react to light. Corneal reflex is present bilaterally. Neck is supple. There was some withdrawal with noxious stimulation over each foot. I did not see any spontaneous or voluntary limb movement. He did not communicate. IMPRESSION AND PLAN: Global encephalopathy, likely anoxic and irreversible. No new suggestion from Neurology today. cc: Ja Roger III, MD
--- NOTE | 2018-03-21 09:56 | PULMONOLOGY PROGRESS NOTE ---
DATE: 03/21/2018 SUBJECTIVE: The patient responds to painful stimuli, but does not respond to verbal stimuli. He remains on mechanical ventilation. OBJECTIVE: Vital Signs: Blood pressure 129/86, heart rate 89, respiratory rate 12, oxygen saturation 95%. HEENT: Pupils are equal and reactive to light. Oropharynx appears dry. Neck: Supple. Chest: Reveals coarse rhonchi bilaterally. Cardiac exam: Distant heart sounds. Normal S1, normal S2. Abdomen: Soft without bowel sounds. Extremities: Warm to the touch. LABORATORIES: White blood count 8.52, hemoglobin 11.1, platelet count 271. Sodium 140, potassium 3.8, chloride 95, bicarbonate 32. BUN 32, creatinine 0.7. IMAGING: Chest x-ray: Slight worsening on the right. IMPRESSION: A 52-year-old with severe combined heart and lung disease, peripheral vascular disease status post cardiopulmonary arrest. He has hypoxemic and hypercapnic respiratory failure. He appears to have anoxic brain injury. Prognosis remains poor. His code status has not been changed. Family members are not currently at the bedside. PLAN: 1. Continue ventilatory support and wean as tolerated. 2. Continue seizure medicines per Neurology. 3. Continue broad-spectrum antibiotics. 4. Prognosis remains extremely poor. End of life discussions should be ongoing. Time spent critical care: 30+ minutes cc: Kj Hope MD [facility]
[2018-03-21] MEDS: DIPRIVAN 1% 1,000 MG/100 ML BOTTLE IV SCH ×4 (10:34→23:23)
[2018-03-21] MEDS: VANCOMYCIN 1,750 MG in NS 250 ML IV SCH (11:31)
[2018-03-21] MEDS: SODIUM CHLORIDE 0.9% INJ SCH (15:42)
[2018-03-21] MEDS: LIPITOR NG SCH (20:53)
[2018-03-21] MEDS ORDERED: LASIX IV ONE (21:13)
[2018-03-22] MEDS: KEPPRA 1,000 MG in NS 100 ML IV SCH ×2 (02:22→13:51)
[2018-03-22] MEDS: DUONEB (A & A) INH SCH ×6 (03:07→22:45)
[2018-03-22] MEDS: DIPRIVAN 1% 1,000 MG/100 ML BOTTLE IV SCH ×5 (03:08→23:42)
[2018-03-22] MEDS: CLINIMIX E 4.25%-5% SOLUTION 1,000 ML IV SCH ×2 (03:09→16:48)
[2018-03-22] MEDS: SODIUM CHLORIDE 0.9% INJ SCH (03:30)
[2018-03-22] MEDS: PROTONIX IV SCH ×2 (03:30→16:49)
[2018-03-22 04:55] LABS: ALLEN TEST YES; BE 12.8 mmoll (-3.0-3.0); BLOOD TYPE ARTERIAL; HCO3-(ACT) 34.9 mmoll (20.0-26.0); METHB 1.2 % (0.0-1.5); O2HB 96.3 % (95.0-99.0); PCO2(98.6) 47 mmHg (35-45); PO2(98.6) 122 mmHg (60-100); SAMPLE BLOOD; SAO2 98.9 % (95.0-100.0); SRATE 15 BPM; THB 12.4 g/dL (11.5-17.4); pH(98.6) 7.51 (7.35-7.45)
[2018-03-22 04:57] LABS: MODALITY VENTILATOR
[2018-03-22 06:01] LABS: HEMATOCRIT 39.4 % (42.0-52.0); MCH 28.9 PG (27-31); MCHC 30.5 g/dL (33-37); MCV 94.9 FL (81-99); MPV 10.9 FL (7.4-10.4); RBC 4.15 XMIL (4.7-6.1); RDW 15.3 % (11.5-14.5); WBC 10.12 X1000 (4.8-10.8)
--- NOTE | 2018-03-22 06:04 | CARDIOLOGY PROGRESS NOTE ---
DATE: 03/21/2018 SUBJECTIVE: Mr. Saini remains intubated and sedated. No real physical response with verbal or physical stimuli. PHYSICAL EXAMINATION: Vital Signs: The patient is afebrile. He had a T-max of a 100.9 degrees recorded on 03/19/2018. Blood pressure is 124/65, heart rate is 98. General: No acute distress. Intubated and sedated. Cardiovascular: He sounds to be in a regular rate and rhythm. I do not hear any murmurs. He has warm and well perfused lower extremities with trace edema. Chest: Has coarse breath sounds diffusely. Mechanical ventilation sounds heard throughout all lung lal. Abdomen: Protuberant, somewhat tense but no obvious rebound or guarding. Bowel sounds intact. PERTINENT DATA: White count is 8.5, hematocrit 36, platelet count 271,000. His sodium is 140, potassium is 3.8, BUN 32, creatinine 0.7. His albumin level is 2.9. ASSESSMENT: Mr. Saini is a 52-year-old gentleman with a cardiac arrest with first recorded rhythm of asystole. He now has probable anoxic brain injury and respiratory failure. PLAN: At this point I do not have any acute cardiovascular recommendations. We will follow intermittently. End of life discussions seemed to be ongoing. cc: Felix Yan MD
[2018-03-22] MEDS: HUMALOG SUBQ SCH ×4 (06:13→21:04)
--- NOTE | 2018-03-22 07:10 | Diag Imaging Result Doc PS360 ---
EXAM: CHEST-PORTABLE 03/22/2018 HISTORY: dyspnea TECHNIQUE: AP portable at 0515 COMMENT: There is diffuse interstitial and alveolar opacity in the right lung. This has not changed appreciably since the previous study of 03/21/2018. There is worsened alveolar opacity in the lateral left upper lobe. IMPRESSION: Pulmonary edema plus minus pneumonia, worsened in the left upper lobe. Electronically signed by Jimmy Dunlap 03/22/2018 7:08 AM
[2018-03-22 07:13] LABS: AGAP 15; ALB/GLOB RATIO 0.7; ALBUMIN 2.8 g/dL (3.5-5.0); ALKALINE PHOSPHATASE 72 U/L (32-122); BUN 36 mg/dL (8-22); CALCIUM 8.6 mg/dL (8.8-10.2); CHLORIDE 93 mmol/L (98-107); COSMO 292; CREATININE 0.8 mg/dL (0.7-1.2); ESTIMATED GFR > 60; GLUCOSE 136 mg/dL (70-104); GOT 58 U/L (10-34); GPT 13 U/L (10-44); POTASSIUM 3.6 mmol/L (3.5-5.1); SODIUM 141 mmol/L (136-145); TCO2 33 mmol/L (25-35); TOTAL BILIRUBIN 0.46 mg/dL (0.20-1.00); TOTAL PROTEIN 6.9 g/dL (6.3-8.3)
[2018-03-22] MEDS: ASPIRIN PO SCH (08:28)
[2018-03-22] MEDS: LOVENOX SUBQ SCH (08:31)
[2018-03-22] MEDS: LASIX IV SCH ×2 (08:31→20:38)
[2018-03-22] MEDS: MERREM 1 GM in NS 50 ML IV SCH ×3 (08:32→23:42)
[2018-03-22] MEDS: VANCOMYCIN 1,750 MG in NS 250 ML IV SCH (10:23)
--- NOTE | 2018-03-22 10:30 | PROGRESS NOTE ---
DATE: 03/22/2018 SUBJECTIVE: The patient continues to be sedated on the ventilator. Last night he was having problems with oxygenation. He started desaturating to 83% and 82% on 100% percent on the ventilator. He was bagged and tried to remove some secretions, and now upon my examination he is maintaining O2 saturation of 94% on 100% of oxygen. OBJECTIVE: Vital Signs: Temperature 100.3 degrees, heart rate 68, respiratory rate 22, blood pressure 175/30, and O2 saturation 96% on 2 liters. Vital signs: Temperature 99.6, heart rate 105, respiratory rate 17, blood pressure 133/79, and O2 saturation 95% on mechanical ventilator at FiO2 of 100%. General: On examination, this is a chronically ill-looking and frail 52-year-old male, lying in bed, in no acute distress. Sedated and intubated. HEENT: Head is normocephalic, atraumatic. Mucous membranes dry. The patient is intubated. Neck: No JVD noted. No carotid bruits. No lymphadenopathy. No thyromegaly. Cardiovascular: S1 and S2 heard. No murmurs, gallops, or rubs. Regular rate and rhythm. Respiratory: Decreased breath sounds globally. Still crackles and coarse breath sounds noted in both pulmonary bases. The patient is not using any accessory muscles or having work of breathing. Abdomen: Soft. Nontender to palpation. Bowel sounds present. No organomegaly. Extremities/Skin: Mild edema still noted in both lateral aspects of the abdominal wall and erythematous scaly lesions in the extensor surface of the knee and elbows. Mild edema in both lower extremities noted too. Neurological: The patient is unresponsive, reveals still mydriatic, responds to painful stimuli only. LABORATORY DATA: Reviewed. ASSESSMENT AND PLAN: 1. Acute respiratory failure on ventilator. Actually, the patient is getting worse, now requiring oxygen at 100% FiO2. Pulmonary managing the ventilator. The prognosis is poor. 2. Status post cardiac arrest secondary to [id number] elevation myocardial infarction. No new recommendations from Cardiology standpoint. This patient basically is unresponsive because of anoxic brain injury. The patient's Virgil Coma Score continues to be 6 to 7. Neurology also thinks this patient has most likely irreversible severe anoxic brain injury. 3. Acute on chronic congestive heart failure with ejection fraction of 15% to 20%. The patient has signs still of volume overload and receiving diuretics, but there are no more things that we can do for this patient at this time. 4. Ischemic cardiomyopathy with critical stenosis of coronary arteries. The patient is on statin and aspirin. Not too much to offer to this patient at this time. 5. Hypertension. Blood pressure is getting lower. He may require new vasopressors down the road. We will continue to monitor this patient. 6. Prognosis. The patient has a very poor prognosis considering that his respiratory status continues to get worse. The patient also has severe and irreversible anoxic encephalopathy. The patient has congestive heart failure, and blood pressure continues to get down, so he may need to start vasopressors down the road. So, at this point I think this patient is not going to survive this episode. We are planning to meet with the family tomorrow afternoon to discuss goals of care, but from my standpoint, the best thing that we can do for this patient is to do comfort care measures only and allow natural . cc: Jayson Milner MD
--- NOTE | 2018-03-22 12:53 | PROGRESS NOTE ---
DATE: 03/22/2018 Mr. Saini looks about the same clinically. There is lateral eye movement with passive head turning. Pupils react slightly to bright light. Corneal reflex remains present bilaterally. There is no meningismus. He had brisk withdrawal with moderate noxious stimulation over each foot. Limb tone is symmetric. He did not seem to be awake or alert and he did not communicate with me. IMPRESSION: Global encephalopathy, probable anoxic brain injury. At this point, with lack of clinical evidence of recovery, we may be seeing irreversible encephalopathy. 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 No urgent suggestion from Neurology standpoint. Thanks for asking us to see Mr. Saini. cc: Ja Roger III, MD
--- NOTE | 2018-03-22 13:23 | PULMONOLOGY PROGRESS NOTE ---
DATE: 03/22/2018 SUBJECTIVE: The patient is unresponsive. His oxygen requirements have continued to increase. OBJECTIVE: Vital Signs: The patient has been afebrile for the last 24 hours. Blood pressure 142/118, heart rate 105, respiratory rate 19, oxygen saturation 95%. HEENT: Pupils are minimally reactive. Oropharynx appears dry. Neck: Supple. Chest: Reveals coarse rhonchi bilaterally. Cardiac: S1-S2. Abdomen: Obese and soft. Extremities: Reveal chronic vascular disease and are slightly cool to the touch. LABORATORIES: Arterial blood gas reveals a pH 7.51, pCO2 of 47, PO2 of 122. Sodium 141, potassium 3.6, chloride 93, bicarbonate 33, BUN 36, creatinine 0.8. Chest x-ray, reveals diffuse bilateral infiltrates with some increased infiltrates in the left upper lobe. IMPRESSION: A 52-year-old with severe combined heart and lung disease, severe peripheral vascular disease, status post cardiopulmonary arrest. The patient has hypoxemic and hypercapnic respiratory failure with clinical evaluation consistent with significant anoxic brain injury. The patient continues to require high oxygen and is developing ARDS. His prognosis is poor. He is unlikely to survive this hospitalization. No family members are at the bedside. Dr. Carpenter's notes have been reviewed and he indicates a family meeting has been scheduled. RECOMMENDATIONS: 1. Continue current ventilatory support. 2. Continue seizure medicines per Dr. Roger. 3. Continue broad-spectrum antibiotics. 4. Prognosis is extremely poor. He is not likely to survive this hospital course. TIME SPENT: Time spent in critical care 30+ minutes. cc: Kj Hope MD [facility]
[2018-03-22] MEDS: LIPITOR NG SCH (20:40)
[2018-03-23] MEDS: KEPPRA 1,000 MG in NS 100 ML IV SCH ×2 (02:14→14:09)
[2018-03-23] MEDS: DUONEB (A & A) INH SCH ×6 (03:44→23:39)
[2018-03-23] MEDS: DIPRIVAN 1% 1,000 MG/100 ML BOTTLE IV SCH ×5 (03:55→21:51)
[2018-03-23] MEDS: SODIUM CHLORIDE 0.9% INJ SCH (03:55)
[2018-03-23] MEDS: PROTONIX IV SCH ×2 (03:55→15:51)
--- NOTE | 2018-03-23 03:55 | CARDIOLOGY PROGRESS NOTE ---
DATE: 03/22/2018 SUBJECTIVE: Mr. Saini is not responsive. He opens his eyes briefly, but does not seem to localize the examiner. PHYSICAL EXAMINATION: Vital Signs: The patient has been afebrile for the last 24 hours. Heart rate is in the low 100s predominantly. Blood pressure 142/118, and most recently, his I's and O's have been negative over the last several days. General: He is in no acute distress. Again, not really responsive to physical stimuli. Cardiovascular: He sounds to be in a regular rate and rhythm. He has no lower extremity edema. He is warm and well-perfused to lower extremities. Chest: Coarse upper airway noise and mechanical breath sounds heard throughout all lung lal. No increased work of breathing. Abdomen: Soft, nontender. PERTINENT DATA: White count 10.1, hematocrit 39.4, his platelet count is 336,000 his sodium is 141, potassium 3.6, BUN 36 creatinine 0.8. Albumin is 2.8. ASSESSMENT: Mr. Saini is a 52-year-old gentleman who suffered an asystole arrest. PLAN: He is diuresing with IV Lasix on board. His renal function seems to be remaining stable. His chest x-ray continues to suggest some amount of pulmonary edema, so presently it would seem reasonable to continue the Lasix. Unfortunately, the patient has a very poor prognosis, and has likely had a significant anoxic injury. We will follow intermittently. cc: Felix Yan MD
[2018-03-23 04:52] LABS: MCHC 30.7 g/dL (33-37)
[2018-03-23 04:57] LABS: ALLEN TEST YES; BE 13.4 mmoll (-3.0-3.0); BLOOD TYPE ARTERIAL; HCO3-(ACT) 35.4 mmoll (20.0-26.0); METHB 1.1 % (0.0-1.5); O2(CT) 15.7 mL/dL (15.0-23.0); O2HB 96.8 % (95.0-99.0); PCO2(98.6) 45 mmHg (35-45); PO2(98.6) 119 mmHg (60-100); SAMPLE BLOOD; SAO2 99.3 % (95.0-100.0); SRATE 15 BPM; THB 11.4 g/dL (11.5-17.4); pH(98.6) 7.53 (7.35-7.45)
[2018-03-23 04:58] LABS: MODALITY VENTILATOR
[2018-03-23 05:23] LABS: AGAP 13; ALB/GLOB RATIO 0.7; ALBUMIN 2.8 g/dL (3.5-5.0); ALKALINE PHOSPHATASE 71 U/L (32-122); BUN 33 mg/dL (8-22); CALCIUM 8.9 mg/dL (8.8-10.2); CHLORIDE 94 mmol/L (98-107); COSMO 289; CREATININE 0.7 mg/dL (0.7-1.2); ESTIMATED GFR > 60; GLUCOSE 145 mg/dL (70-104); GOT 60 U/L (10-34); GPT 13 U/L (10-44); POTASSIUM 3.5 mmol/L (3.5-5.1); SODIUM 140 mmol/L (136-145); TCO2 33 mmol/L (25-35); TOTAL BILIRUBIN 0.42 mg/dL (0.20-1.00); TOTAL PROTEIN 6.6 g/dL (6.3-8.3)
[2018-03-23 06:05] LABS: HEMATOCRIT 38.8 % (42.0-52.0); HEMOGLOBIN 11.9 g/dL (14.0-18.0); MCH 29.2 PG (27-31); MCV 95.1 FL (81-99); MPV 11.2 FL (7.4-10.4); RBC 4.08 XMIL (4.7-6.1); RDW 15.4 % (11.5-14.5); WBC 11.07 X1000 (4.8-10.8)
[2018-03-23] MEDS: HUMALOG SUBQ SCH ×4 (06:23→21:50)
--- NOTE | 2018-03-23 07:48 | Diag Imaging Result Doc PS360 ---
CHEST-PORTABLE - 03/23/2018 INDICATION: dyspnea COMPARISON: 03/22/2018 FINDINGS: Support lines and tubes are stable. There has been slight improvement in the diffuse bilateral alveolar infiltrates. No large pleural effusion. Heart size remains stable. IMPRESSION: Slight improvement from prior. Electronically signed by Helio Law 03/23/2018 7:45 AM
[2018-03-23] MEDS: CLINIMIX E 4.25%-5% SOLUTION 1,000 ML IV SCH ×2 (08:24→21:52)
[2018-03-23] MEDS: MERREM 1 GM in NS 50 ML IV SCH ×2 (08:24→15:51)
[2018-03-23] MEDS: ASPIRIN PO SCH (08:24)
[2018-03-23] MEDS: LASIX IV SCH ×2 (08:25→21:51)
[2018-03-23] MEDS: LOVENOX SUBQ SCH (08:25)
[2018-03-23] MEDS: VANCOMYCIN 1,750 MG in NS 250 ML IV SCH (10:57)
--- NOTE | 2018-03-23 11:57 | PROGRESS NOTE ---
DATE: 03/23/2018 Mr. Saini looks about the same clinically. He did not respond to me. He shows brisk withdrawal in response to relatively moderate noxious stimulation over the limbs, particularly the feet. He has lateral eye movement with passive head turning. Pupils react to bright light. Corneal reflex is present bilaterally. Neck remains supple. No new thoughts today. This looks like anoxic encephalopathy with current vegetative state and no clinical evidence of improvement over the last few days. I do not have any new suggestion from neurologic standpoint. Thanks for asking us to see Mr. Saini. cc: Ja Roger III, MD
--- NOTE | 2018-03-23 12:28 | PROGRESS NOTE ---
DATE: 03/23/2018 SUBJECTIVE: The patient continues to be sedated intubated. According to the nursing staff, he was having some episodes of nonsustained ventricular tachycardia. OBJECTIVE: Vital signs: Temperature 97.4, heart rate 94, respiratory rate 15, blood pressure 110/74, O2 sat 97% on mechanical ventilator at FiO2 of 100%. General: This is a clinically ill- looking 52-year-old male lying in bed in no acute distress sedated and intubated. HEENT: Head is normocephalic and atraumatic. Mucous membranes dry. Patient intubated. Neck: No JVD, no carotid bruits, no thyromegaly, no lymphadenopathy. Cardiovascular: S1, S2 heard. No murmurs, gallops, or rubs. Regular rate and rhythm. Respiratory: There are crackles and coarse breath sounds noted in both pulmonary lal, actually getting worse in comparison with previous dictation. Not using any accessory muscles or having work of breathing. Abdomen: Soft. Bowel sounds present. No organomegaly. Extremities/Skin: Mild edema in both lateral aspects of the abdominal wall. Erythematous scaly lesions on the extensor surface of the knee and the elbows. Mild edema in both lower extremities noted, too. Neurological: The patient is unresponsive. Pupils still mydriatic. He responds to painful stimuli only. LABORATORY DATA: Reviewed. ASSESSMENT AND PLAN: 1. Acute respiratory failure on ventilator. Unfortunately, this patient continues to require 100% oxygen by ventilator. Yesterday he was having some issues including dropping O2 saturation on 100% oxygen. The prognosis is poor. Pulmonary following this patient. 2. Status post cardiac arrest related to rie-BH-zdkevyn-elevation myocardial infarction. Cardiology is following this patient, but there are no new recommendations. Basically, there is probably not too much that we can offer to this patient considering that he is unresponsive with what looks like anoxic brain injury. At this point, will continue to monitor this patient closely. 3. Anoxic brain injury. Unfortunately, we do think that he has an irreversible anoxic encephalopathy because the patient did not show any signs of improvement. We are planning to inform the family of his poor progression. 4. Acute on chronic congestive heart failure with ejection fraction of 15% to 20%. Actually, that ejection fraction was documented before he had a heart attack, so considering his clinical situation now, I think that ejection fraction should be lower than that which makes survival of this patient highly unlikely. At this point, we are planning to meet the family in the afternoon and discuss with them prognosis and further goals of care. cc: Jayson Milner MD
[2018-03-23] MEDS: LIPITOR NG SCH (21:52)
--- NOTE | 2018-03-23 23:09 | CARDIOLOGY PROGRESS NOTE ---
DATE: 03/23/2018 SUBJECTIVE: Mr. Saini remains on the ventilator. He is not responsive in any meaningful way to physical stimuli. He does seem to grimace slightly but does not follow commands. PHYSICAL EXAMINATION: He is afebrile. His heart rate is in the 90s to low 100s. His blood pressure is 119/74. General: He is in no acute distress. Cardiovascular: He is in a regular rate and rhythm. He has no murmurs. He has no S3. He has no lower extremity edema. Chest: His chest exam has coarse upper airway noise diffusely. No increased work of breathing. He is on the ventilator. Abdomen: Soft, nontender. PERTINENT DATA: His white count is 11, his hematocrit is 38, his platelet count is 321,000. His sodium is 140, potassium 3.5, his BUN is 33, creatinine 0.7. Albumin is 2.8. ASSESSMENT: Mr. Saini is a 52-year-old gentleman who suffered an asystole arrest. PLAN: The patient continues to diurese with continued maintenance of his renal function. I would not change his diuretics presently as oxygenation seems to be doing well. Presently, I believe end-of-life decisions are ongoing. cc: Felix Yan MD
[2018-03-24] MEDS: MERREM 1 GM in NS 50 ML IV SCH ×3 (00:30→16:31)
[2018-03-24] MEDS: KEPPRA 1,000 MG in NS 100 ML IV SCH ×2 (01:33→14:26)
[2018-03-24] MEDS: DIPRIVAN 1% 1,000 MG/100 ML BOTTLE IV SCH ×5 (01:33→20:26)
[2018-03-24] MEDS: DUONEB (A & A) INH SCH ×6 (03:36→23:35)
[2018-03-24] MEDS: PROTONIX IV SCH ×2 (05:25→15:44)
[2018-03-24 05:27] LABS: HEMATOCRIT 39.3 % (42.0-52.0); MCH 28.7 PG (27-31); MCHC 30.5 g/dL (33-37); MPV 10.5 FL (7.4-10.4); RBC 4.18 XMIL (4.7-6.1); RDW 15.1 % (11.5-14.5); WBC 12.86 X1000 (4.8-10.8)
[2018-03-24 05:45] LABS: ALLEN TEST YES; BE 10.7 mmoll (-3.0-3.0); BLOOD TYPE ARTERIAL; HCO3-(ACT) 33.3 mmoll (20.0-26.0); METHB 1.2 % (0.0-1.5); O2(CT) 16.9 mL/dL (15.0-23.0); O2HB 96.9 % (95.0-99.0); PCO2(98.6) 40 mmHg (35-45); PO2(98.6) 142 mmHg (60-100); SAMPLE BLOOD; SAO2 99.7 % (95.0-100.0); SRATE 15 BPM; THB 12.2 g/dL (11.5-17.4); pH(98.6) 7.54 (7.35-7.45)
[2018-03-24 05:46] LABS: MODALITY VENTILATOR
[2018-03-24] MEDS: HUMALOG SUBQ SCH ×4 (06:13→20:24)
[2018-03-24 06:14] LABS: AGAP 13; ALB/GLOB RATIO 0.7; ALBUMIN 2.7 g/dL (3.5-5.0); ALKALINE PHOSPHATASE 73 U/L (32-122); BUN 32 mg/dL (8-22); CALCIUM 8.7 mg/dL (8.8-10.2); CHLORIDE 94 mmol/L (98-107); COSMO 286; CREATININE 0.7 mg/dL (0.7-1.2); ESTIMATED GFR > 60; GLUCOSE 159 mg/dL (70-104); GOT 54 U/L (10-34); GPT 12 U/L (10-44); POTASSIUM 3.5 mmol/L (3.5-5.1); SODIUM 138 mmol/L (136-145); TCO2 31 mmol/L (25-35); TOTAL BILIRUBIN 0.49 mg/dL (0.20-1.00); TOTAL PROTEIN 6.4 g/dL (6.3-8.3)
--- NOTE | 2018-03-24 08:21 | Diag Imaging Result Doc PS360 ---
EXAM: CHEST-PORTABLE INDICATION: dyspnea TECHNIQUE: One view COMPARISON: 03/23/2018 FINDINGS: Support tubes and lines are in stable positions. There are persistent bilateral infiltrates that are worse on the right. Infiltrates appear to have increased in density at the mid and lower lung zone on the right. No other new consolidations are identified. Cardiac silhouette is stable. IMPRESSION: Interval slight worsening on the right. Essentially stable, otherwise. Electronically signed by Kush Soto 03/24/2018 8:19 AM
[2018-03-24] MEDS: LOVENOX SUBQ SCH (08:32)
[2018-03-24] MEDS: ASPIRIN PO SCH (08:32)
[2018-03-24] MEDS: LASIX IV SCH ×2 (08:33→20:26)
[2018-03-24] MEDS: VANCOMYCIN 1,750 MG in NS 250 ML IV SCH (11:01)
[2018-03-24] MEDS: CLINIMIX E 4.25%-5% SOLUTION 1,000 ML IV SCH (11:06)
[2018-03-24] MEDS: LIPITOR NG SCH (20:26)
[2018-03-25] MEDS: MERREM 1 GM in NS 50 ML IV SCH ×3 (00:30→16:32)
[2018-03-25] MEDS: CLINIMIX E 4.25%-5% SOLUTION 1,000 ML IV SCH ×2 (01:54→16:31)
[2018-03-25] MEDS: KEPPRA 1,000 MG in NS 100 ML IV SCH ×2 (01:56→14:30)
[2018-03-25] MEDS: DUONEB (A & A) INH SCH ×6 (03:07→23:25)
[2018-03-25] MEDS: PROTONIX IV SCH ×2 (04:20→16:32)
[2018-03-25 05:19] LABS: ALLEN TEST YES; BE 6.5 mmoll (-3.0-3.0); BLOOD TYPE ARTERIAL; HCO3-(ACT) 29.8 mmoll (20.0-26.0); METHB 0.9 % (0.0-1.5); O2(CT) 20.2 mL/dL (15.0-23.0); O2HB 90.4 % (95.0-99.0); PO2(98.6) 68 mmHg (60-100); SAMPLE BLOOD; SAO2 92.6 % (95.0-100.0); SRATE 15 BPM; THB 15.9 g/dL (11.5-17.4); pH(98.6) 7.37 (7.35-7.45)
[2018-03-25 05:24] LABS: MODALITY VENTILATOR; PCO2(98.6) 59 mmHg (35-45)
[2018-03-25 06:30] LABS: HEMATOCRIT 41.2 % (42.0-52.0); HEMOGLOBIN 12.8 g/dL (14.0-18.0); MCHC 31.1 g/dL (33-37); MCV 93.4 FL (81-99); MPV 11.3 FL (7.4-10.4); RBC 4.41 XMIL (4.7-6.1); RDW 15.2 % (11.5-14.5); WBC 16.29 X1000 (4.8-10.8)
[2018-03-25 07:22] LABS: AGAP 17; ALB/GLOB RATIO 0.7; ALBUMIN 2.9 g/dL (3.5-5.0); ALKALINE PHOSPHATASE 81 U/L (32-122); BUN 47 mg/dL (8-22); CALCIUM 9.1 mg/dL (8.8-10.2); CHLORIDE 94 mmol/L (98-107); COSMO 290; CREATININE 0.9 mg/dL (0.7-1.2); ESTIMATED GFR > 60; GLUCOSE 133 mg/dL (70-104); GOT 46 U/L (10-34); GPT 11 U/L (10-44); SODIUM 138 mmol/L (136-145); TCO2 27 mmol/L (25-35); TOTAL BILIRUBIN 0.67 mg/dL (0.20-1.00); TOTAL PROTEIN 6.8 g/dL (6.3-8.3)
[2018-03-25] MEDS: HUMALOG SUBQ SCH ×4 (07:49→20:35)
--- NOTE | 2018-03-25 08:13 | Diag Imaging Result Doc PS360 ---
EXAM: CHEST-PORTABLE INDICATION: dyspnea TECHNIQUE: One view COMPARISON: 03/24/2018 FINDINGS: Support tubes and lines are in stable positions. Bilateral infiltrates, worse on the right, are essentially stable. There appears to be a moderate-sized pleural effusion on the right that has increased in size. Cardiac silhouette is stable. IMPRESSION: Right pleural effusion that has increased in size. Stable chest, otherwise. Electronically signed by Kush Soto 03/25/2018 8:10 AM
[2018-03-25] MEDS: LOVENOX SUBQ SCH (08:49)
[2018-03-25] MEDS: ASPIRIN PO SCH (08:49)
[2018-03-25] MEDS: MORPHINE IV PRN ×3 (09:01→20:37)
[2018-03-25] MEDS: DIPRIVAN 1% 1,000 MG/100 ML BOTTLE IV SCH ×2 (10:10→20:36)
--- NOTE | 2018-03-25 10:11 | PROGRESS NOTE ---
DATE: 03/25/2018 SUBJECTIVE: Patient continues to be sedated and intubated. As per nursing staff, blood pressure has been a little bit low so we are going to hold Lasix today. No other issues noted. OBJECTIVE: Vital Signs: Temperature 98.8, heart rate 108, respiratory rate 32, blood pressure 92/59, O2 saturation 95% on mechanical ventilator, FiO2 100%. General Examination: This is a chronically ill-appearing, 52-year-old, male lying in bed, in no acute distress. HEENT: Head is normocephalic and atraumatic. Mucous membranes dry. Patient is intubated. Neck: No JVD noted. No carotid bruits. No lymphadenopathy. Cardiovascular Examination: S1 and S2 heard. Tachycardic. No murmurs, gallops, or rubs noted. Respiratory Examination: Coarse breath sounds and crackles in both pulmonary bases, worse in comparing with yesterday. The patient is not using any accessory muscles or having work of breathing. Abdomen: Soft. Nontender to palpation. Bowel sounds present. No organomegaly. Integumentary: Mild edema in both lateral aspects of the abdominal wall as well as both lower extremities. Extremities: There are erythematous, scaly lesions on the extensor surface of the knee and elbows. Neurological Examination: The patient is unresponsive. Not responding to painful stimuli. Pupils continue to be mydriatic. Laboratory Data: White cell count is 16.29, with hemoglobin 12.8, hematocrit 41.2, platelets 375,000. ABG shows pH 7.37 with pCO2 59. The patient is on ventilator at FiO2 of 100%. BMP unremarkable. ASSESSMENT AND PLAN: 1. Acute respiratory failure, on the ventilator. Unfortunately, this patient continues to require 100% of oxygen by ventilator. Occasionally, he continues to drop oxygen saturation but nurses continue to aspirate secretions. His prognosis is very poor. Pulmonary is following. We will follow recommendations. 2. Status post cardiac arrest related to ngn-BM-[id number] elevation myocardial infarction. At this point, cardiology is following but unfortunately, there are no new recommendations that they can provide to us. Patient continues to receive diuretics. We are going to hold them today because of low blood pressure. We will continue to monitor. 3. Anoxic brain injury. As we mentioned before, our neurologist has been evaluating this patient on a single basis and they mention that he did not show any improvement in mental status so we think that this anoxic brain injury is irreversible. Family aware of his diagnosis. 4. Acute on chronic congestive heart failure with ejection fraction of 15 to 20 percent. We are going to hold diuretics because blood pressure is low. We will monitor this patient closely. 5. Disposition. Yesterday, and daughter decided to change code status to Do Not Resuscitate level 1. Son agreed with the plan. We will continue to monitor. cc: Jayson Milner MD
[2018-03-25] MEDS: VANCOMYCIN 1,750 MG in NS 250 ML IV SCH (11:00)
--- NOTE | 2018-03-25 14:25 | PROGRESS NOTE ---
DATE: 03/24/2018 SUBJECTIVE: Patient continues to be sedated and intubated. Does not respond to painful stimuli. No acute issues noted as per nursing staff overnight. OBJECTIVE: Vital Signs: Temperature 97.1, heart rate 98, respiratory rate 15, blood pressure 112/89. O2 sat 95% on mechanical ventilator, FiO2 100%. General: Chronically ill-looking 52- year-old male lying in bed in no acute distress. Sedated and intubated. HEENT: Head is normocephalic, atraumatic, with pupils mydriatic. Neck: No JVD noted. No carotid bruits. No lymphadenopathy. Cardiovascular: S1, S2 heard. No murmurs, gallops or rubs. Regular rate and rhythm. Respiratory: Crackles and coarse breath sounds noted in both pulmonary lal. The same in comparing with yesterday. The patient is not using any accessory muscles or having work of breathing. Abdomen: Soft. Bowel sounds present. No organomegaly. Extremities: Mild edema in both lateral aspects. In the abdominal wall there is are erythematous scaly lesions on the extensor surface of the knees and elbows, mild edema in both lower extremities noted as well. Neurologic: Patient is unresponsive. He does not respond to painful stimuli as well. ASSESSMENT AND PLAN: 1. Acute respiratory failure, on ventilator. The patient is in a vegetative state. Of course, we are not able to extubate him. He is requiring 100% of oxygen FiO2. The prognosis is extremely poor. Pulmonary following this patient. 2. Status post cardiac arrest. This could be related to a non ST-segment elevation myocardial infarction. Cardiology is following. Not too much to add on this patient. 3. Anoxic brain injury. As per note from Neurology, they said a reversal anoxic brain injury and he is in a vegetative state. That is why we are not able to extubate him. We have informed on this report to the family just today. 4. Acute on chronic congestive heart failure. Cardiology recommended to continue with diuretics, although the current clinical situation is poor. 5. Disposition: At this point, family decided to continue to provide care for this patient. I have explained to them his poor prognosis. He had severe anoxic encephalopathy that he is not going to recover from. He is requiring 100% of oxygen by ventilator that we are not able to wean off any. Before cardiac arrest happens, his ejection fraction of 15% to 20%, after this heart attack that should be much worse now. At this point, we are waiting for the family official confirmation to place this patient on trach, although there will be a lot of issues with them considering that they want him to be sent to a facility where they can take care of him, but they have mentioned clearly they are not going to be able to take care of him at home if he got intubated. At this point, we will continue to monitor this patient closely. cc: Jayson Milner MD MTDD
[2018-03-25] MEDS: LIPITOR NG SCH (20:36)
[2018-03-26] MEDS: MERREM 1 GM in NS 50 ML IV SCH ×3 (01:00→17:35)
[2018-03-26] MEDS: KEPPRA 1,000 MG in NS 100 ML IV SCH ×2 (02:29→14:20)
[2018-03-26] MEDS: DUONEB (A & A) INH SCH ×6 (03:08→22:41)
[2018-03-26] MEDS: PROTONIX IV SCH ×2 (04:19→17:35)
[2018-03-26] MEDS: CLINIMIX E 4.25%-5% SOLUTION 1,000 ML IV SCH ×2 (04:19→17:50)
[2018-03-26 04:45] LABS: ALLEN TEST YES; BE 8.1 mmoll (-3.0-3.0); BLOOD TYPE ARTERIAL; HCO3-(ACT) 31.2 mmoll (20.0-26.0); METHB 0.7 % (0.0-1.5); O2(CT) 17.2 mL/dL (15.0-23.0); O2HB 95.8 % (95.0-99.0); PO2(98.6) 99 mmHg (60-100); SAMPLE BLOOD; SRATE 15 BPM; THB 12.7 g/dL (11.5-17.4); pH(98.6) 7.43 (7.35-7.45)
[2018-03-26 04:59] LABS: MODALITY VENTILATOR; PCO2(98.6) 51 mmHg (35-45)
[2018-03-26] MEDS: HUMALOG SUBQ SCH ×4 (06:15→20:10)
[2018-03-26 06:16] LABS: HEMATOCRIT 40.9 % (42.0-52.0); HEMOGLOBIN 12.6 g/dL (14.0-18.0); MCH 28.4 PG (27-31); MCHC 30.8 g/dL (33-37); MCV 92.3 FL (81-99); MPV 11.2 FL (7.4-10.4); RBC 4.43 XMIL (4.7-6.1); RDW 15.1 % (11.5-14.5); WBC 15.39 X1000 (4.8-10.8)
[2018-03-26 06:26] LABS: ESTIMATED GFR > 60
[2018-03-26 06:28] LABS: AGAP 14; ALB/GLOB RATIO 0.7; ALBUMIN 2.8 g/dL (3.5-5.0); ALKALINE PHOSPHATASE 81 U/L (32-122); BUN 65 mg/dL (8-22); CALCIUM 9.3 mg/dL (8.8-10.2); CHLORIDE 92 mmol/L (98-107); COSMO 293; GLUCOSE 175 mg/dL (70-104); GOT 40 U/L (10-34); GPT 14 U/L (10-44); POTASSIUM 4.3 mmol/L (3.5-5.1); SODIUM 135 mmol/L (136-145); TCO2 29 mmol/L (25-35); TOTAL BILIRUBIN 0.61 mg/dL (0.20-1.00); TOTAL PROTEIN 6.6 g/dL (6.3-8.3)
--- NOTE | 2018-03-26 07:10 | Diag Imaging Result Doc PS360 ---
EXAM: CHEST-PORTABLE 03/26/2018 HISTORY: dyspnea TECHNIQUE: AP portable at 0538 COMMENT: There is an endotracheal tube with its tip just below the thoracic inlet and an NG tube which passes below the diaphragm. There is interstitial and alveolar opacity throughout both lungs particularly in the lower lobes and right upper lobe. This has not changed appreciably since 03/25/2018. IMPRESSION: Pulmonary edema and/or pneumonia. Electronically signed by Jimmy Dunlap 03/26/2018 7:08 AM
--- NOTE | 2018-03-26 08:49 | PULMONOLOGY PROGRESS NOTE ---
DATE: 03/26/2018 SUBJECTIVE: The patient is having periods of posturing. He does not respond to voice. He does not respond to pain. OBJECTIVE: Vital Signs: Maximum temperature in the last 24 hour is 99.4 degrees. HEENT: Upward gaze bilaterally. No response to corneal stimulus. Pupils minimally reactive. Oropharynx appears clear. Neck: Supple. Chest: Reveals diffuse rhonchi bilaterally. Cardiac: S1, S2. Abdomen: Obese and soft. Extremities: Reveal chronic vascular disease. LABORATORY DATA: White blood count 15.39, hemoglobin 12.6, platelet count 400,000. Arterial blood gas reveals a pH of 7.43, pCO2 of 51, PO2 of 99. Sodium 135, potassium 4.3, chloride 92, bicarbonate 29, BUN 65, creatinine 1.0. IMPRESSION: A 52-year-old with severe combined heart and lung disease, severe peripheral vascular disease, status post cardiopulmonary arrest. The patient has continued altered mental status with findings consistent with anoxic encephalopathy and vegetative state. The patient has acute hypoxemic and acute hypercapnic respiratory failure, and his chest x-ray reveals diffuse interstitial infiltrates bilaterally consistent with ARDS. Family discussions have been made over the weekend, and his code status has been changed to DO NOT RESUSCITATE level 1. RECOMMENDATIONS: 1. Continue current ventilatory support. 2. Continue antibiotic regimen. 3. Agree with current resuscitation status. The patient's prognosis for recovery is extremely poor to dismal. TIME SPENT: Time spent in critical care was 30+ minutes. cc: Kj Hope MD
[2018-03-26] MEDS: ASPIRIN PO SCH (09:47)
[2018-03-26] MEDS: LOVENOX SUBQ SCH (09:47)
--- NOTE | 2018-03-26 10:40 | PROGRESS NOTE ---
DATE: 03/26/2018 SUBJECTIVE/OBJECTIVE: Mr. Saini is in ICU bed 12. Mr. Saini this morning has eyes open with conjugate upgaze. There is limited eye movement with passive head movement. Pupils react minimally to bright light. Corneal reflex is present, but diminished bilaterally. He continues to have spontaneous limb movement most noticed in the legs. There was some spontaneous flexion at the hips and knees when legs were passively extended. I did not see arm movement this morning, but that has been noted earlier. There was no communication or evidence of consciousness. IMPRESSION AND PLAN: Anoxic brain injury, likely irreversible, persistent vegetative state, very poor prognosis. I do not have any suggestion from a Neurology standpoint. cc: Ja Roger III, MD MTDD
[2018-03-26] MEDS: VANCOMYCIN 1,750 MG in NS 250 ML IV SCH (10:46)
--- NOTE | 2018-03-26 10:52 | PROGRESS NOTE ---
DATE: 03/26/2018 SUBJECTIVE: Patient continues to be sedated and intubated. According to nursing staff, the patient is having periods of posturing and he does not respond to painful stimuli at all. OBJECTIVE: Vital Signs: Temperature 98.9, heart rate 105, respiratory rate 18, blood pressure 87/54, O2 saturation 100% on mechanical ventilator. General Examination: This is a chronically ill-appearing, 52-year-old male, lying in bed, in no acute distress. Sedated and intubated. HEENT: Head is normocephalic, atraumatic. Mucous membranes dry. Patient is intubated. Neck: No JVD noted. No carotid bruits. No lymphadenopathy. No thyromegaly. Cardiovascular: S1, S2 heard. Tachycardic. No murmurs, gallops, or rubs noted. Respiratory: Coarse breath sounds and crackles in both pulmonary bases, worse in comparing with yesterday and the day before yesterday. Patient is not using any accessory muscles or having work of breathing. Abdomen: Soft. Bowel sounds present. No organomegaly noted. Extremities: Mild edema in both lateral aspects of the abdominal wall, as well as both lower extremities. Also there are erythematous, scaly lesions on the extensor surface of the knees and elbows. Neurological: Patient is unresponsive completely. Not responding to painful stimuli. Pupils continue to be mydriatic. LABORATORY DATA: Reviewed. ASSESSMENT AND PLAN: 1. Acute respiratory failure, on ventilator. The patient for last 4 days continues to require FiO2 100%. Occasionally oxygen saturation drops but nurses continue to aspirate secretions. His prognosis is extremely poor. Pulmonary is following this patient. 2. Status post cardiac arrest secondary to non ST-segment elevation myocardial infarction. Cardiology is following. Basically there are no new recommendations they can provide to us for this patient. The patient continues with diuretics but those has been held because of low blood pressure. We will continue to monitor. 3. Irreversible anoxic brain injury. That is the conclusion from our neurologist. 4. Acute on chronic congestive heart failure with an ejection fraction of 15 to 20%. At this point, the patient is not able to tolerate diuretics because of blood pressure. We will continue to monitor this patient closely. 5. Disposition. The patient has been DNR level 1 for last 2 days. I have talked with our palliative care nurse to see if we can talk with the family today about discontinuing the ventilator. We will see what they have to say, because apparently they have refused to arrange tracheostomy for this patient. cc: Jayson Milner MD
--- NOTE | 2018-03-26 14:25 | CARDIOLOGY PROGRESS NOTE ---
DATE: 03/26/2018 SUBJECTIVE: Mr. Saini continues to be on the ventilator. He is not responsive to physical or verbal stimuli. OBJECTIVE: Vital signs: He is afebrile. Heart rate of 102. Blood pressure 109/55. General: No acute distress. Cardiovascular: He sounds to be in a mildly tachycardic but regular rhythm. He has no obvious murmurs. No S3. He has warm and well perfused lower extremities with no edema. Chest: Has coarse breath sounds somewhat diffusely. Mechanical breath sounds heard throughout all lung lal. PERTINENT DATA: Sodium 135, potassium 4.3, BUN 65, creatinine is 1. White count is 15.4. ASSESSMENT: Mr. Saini is a 52-year-old gentleman who suffered an asystole arrest and subsequent anoxic brain injury. PLAN: I do not have any acute cardiovascular recommendations at this time. The patient seems to be in a persistent vegetative state per neurology note. At this point diuretics are being held secondary to relative hypotension. I have no acute recommendations. Please contact us if we can be of further assistance. cc: Felix Yan MD
[2018-03-26] MEDS: MORPHINE IV PRN ×2 (16:04→20:10)
[2018-03-26] MEDS: LIPITOR NG SCH (20:10)
[2018-03-27] MEDS: KEPPRA 1,000 MG in NS 100 ML IV SCH ×2 (01:17→15:19)
[2018-03-27] MEDS: MERREM 1 GM in NS 50 ML IV SCH ×2 (01:17→08:45)
[2018-03-27] MEDS: DUONEB (A & A) INH SCH ×4 (03:57→15:39)
[2018-03-27] MEDS: PROTONIX IV SCH (04:20)
[2018-03-27] MEDS: SODIUM CHLORIDE 0.9% INJ SCH (04:20)
[2018-03-27] MEDS: MORPHINE IV PRN ×3 (04:23→17:39)
[2018-03-27 05:02] LABS: ALLEN TEST YES; BE 5.6 mmoll (-3.0-3.0); BLOOD TYPE ARTERIAL; HCO3-(ACT) 29.2 mmoll (20.0-26.0); O2(CT) 16.6 mL/dL (15.0-23.0); O2HB 92.5 % (95.0-99.0); PCO2(98.6) 45 mmHg (35-45); PO2(98.6) 76 mmHg (60-100); SAMPLE BLOOD; SAO2 95.4 % (95.0-100.0); SRATE 15 BPM; THB 12.7 g/dL (11.5-17.4); pH(98.6) 7.44 (7.35-7.45)
[2018-03-27 05:04] LABS: MODALITY VENTILATOR
[2018-03-27 05:34] LABS: HEMATOCRIT 37.3 % (42.0-52.0); HEMOGLOBIN 11.7 g/dL (14.0-18.0); MCH 28.9 PG (27-31); MCHC 31.4 g/dL (33-37); MCV 92.1 FL (81-99); MPV 10.5 FL (7.4-10.4); RBC 4.05 XMIL (4.7-6.1); WBC 19.2 X1000 (4.8-10.8)
[2018-03-27 05:36] LABS: AGAP 17; ALB/GLOB RATIO 0.8; ALBUMIN 2.7 g/dL (3.5-5.0); ALKALINE PHOSPHATASE 93 U/L (32-122); BUN 81 mg/dL (8-22); CALCIUM 9.2 mg/dL (8.8-10.2); CHLORIDE 92 mmol/L (98-107); COSMO 295; CREATININE 1.2 mg/dL (0.7-1.2); ESTIMATED GFR > 60; GLUCOSE 168 mg/dL (70-104); GOT 47 U/L (10-34); GPT 15 U/L (10-44); POTASSIUM 5.4 mmol/L (3.5-5.1); SODIUM 133 mmol/L (136-145); TCO2 24 mmol/L (25-35); TOTAL BILIRUBIN 0.75 mg/dL (0.20-1.00); TOTAL PROTEIN 6.1 g/dL (6.3-8.3)
[2018-03-27] MEDS: HUMALOG SUBQ SCH ×2 (06:23→10:22)
--- NOTE | 2018-03-27 06:41 | Diag Imaging Result Doc PS360 ---
EXAM: CHEST-PORTABLE HISTORY: dyspnea TECHNIQUE: Portable chest single view COMPARISON: 03/26/2018 FINDINGS: No change in the endotracheal tube or nasogastric tube. Heart is enlarged. There are dense infiltrates and small pleural effusions. IMPRESSION: No interval improvement. Electronically signed by Thiago Dhaliwal 03/27/2018 6:39 AM
[2018-03-27] MEDS: CLINIMIX E 4.25%-5% SOLUTION 1,000 ML IV SCH (08:44)
[2018-03-27] MEDS: ASPIRIN PO SCH (08:46)
[2018-03-27] MEDS: LOVENOX SUBQ SCH (08:46)
--- NOTE | 2018-03-27 10:08 | PULMONOLOGY PROGRESS NOTE ---
DATE: 03/27/2018 OBJECTIVE: Vital Signs: BP 85/57, heart rate 100, respiratory rate 22, oxygen saturation 93%. HEENT: Pupils are equal but minimally reactive. Oropharynx appears dry. Neck: Supple. Chest: Reveals diffuse rhonchi bilaterally. Cardiac Examination: S1-S2. Abdomen: Obese and soft. Extremities: Without edema. Neurologic: Some spontaneous movement to painful stimuli. The patient does have spontaneous breathing effort. Laboratories: White blood count 19.2, hemoglobin 11.7, platelet count 428,000. Arterial blood gas on 100% pH 7.44, pCO2 of 45, PO2 of 76. Sodium 133, potassium 5.4, chloride 92, bicarb of 24, BUN 81, creatinine 1.2. Chest x-ray reveals diffuse bilateral pulmonary infiltrates. IMPRESSION: A 52-year-old with severe combined heart and lung disease, severe vascular disease who has sustained a cardiopulmonary arrest. The patient has acute hypoxemic and acute hypercapnic respiratory failure. He is not brain but has significant anoxic brain injury and is at risk for a persistent vegetative state. The patient will not recover to his precardiac arrest status. Family has elected to withdrawal care later this afternoon. RECOMMENDATIONS: 1. Continue ventilatory support this morning. 2. Augment morphine dosing and anticipate extubation. 3. Anticipate compassionate extubation later today. cc: Kj Hope MD
[2018-03-27] MEDS: VANCOMYCIN 1,750 MG in NS 250 ML IV SCH (11:11)
--- NOTE | 2018-03-27 12:05 | PROGRESS NOTE ---
DATE: 03/27/2018 SUBJECTIVE: This patient is still on mechanical ventilation and sedated. When I did my physical exam and I stimulated his feet, he responded with a period of posturing. But he does not respond to pain painful stimuli at all. I do believe the family will withdraw care today. For now, will continue with the same management. OBJECTIVE: Vital signs: Temperature 99 degrees, pulse 100, respiratory rate 22, blood pressure 96/56, oxygen saturation 90 on mechanical ventilation. HEENT: Head normocephalic. No trauma. PERRLA. Neck: Supple. No JVD. Central trachea. Chest: Decreased breath sounds mostly at the bases, coarse breath sounds and crackles at the bases as well. Cardiovascular: RRR. Tachycardic. Abdomen: Soft, nontender, nondistended. No hepatosplenomegaly. Extremities: Trace edema bilaterally. He has some scaly lesions on the extensor surface of the knees and elbows. Neurological: This patient is unresponsive and open stimulation, he presents with posturing. LABORATORY: WBC 19.2, hemoglobin 11.7, hematocrit 37.3, platelets 424,000. Sodium 133, potassium 5.4, chloride 92, bicarbonate 24, BUN 81, creatinine 1.2, glucose 168, calcium 9.2. Albumin 2.7. ASSESSMENT AND PLAN: 1. Status post cardiac arrest secondary to itr-RF-hxzbink-elevation myocardial infarction. Cardiology following. No new recommendations. Continue with same management. 2. Acute respiratory failure on mechanical ventilation. For the past 5 days, he is using high- oxygen flow, and he has been hypoxemic. His prognosis is extremely poor. Pulmonary is following this patient. 3. Anoxic brain injury, basically irreversible by Neurology Department. 4. Acute on chronic congestive heart failure with an ejection fraction of 15% to 20%. At this point, this patient is not able to tolerate high amount of diuretics because of the blood pressure and his general condition. We will continue to monitor. 5. Disposition. This patient is DNR level 1. It looks like the family will withdraw care today. We will continue to monitor for now. No family members at the bedside at the moment of my evaluation. CRITICAL CARE TIME: 35 minutes. cc: Evan Prajapati MD
[2018-03-27 16:25] VITALS: BP 84/57
[2018-03-28] MEDS: DUONEB (A & A) INH SCH (06:51)
--- NOTE | 2018-03-28 10:01 | DISCHARGE SUMMARY ---
ADMISSION DATE: 03/16/2018 DISCHARGE DATE: 03/27/2018 DISCHARGE DIAGNOSES: 1. Status post cardiac arrest secondary to [id number] myocardial infarction. 2. Acute respiratory failure, hypoxemic and hypercarbic. 3. Anoxic brain injury. 4. Acute on chronic congestive heart failure, with an ejection fraction of 15 to 20%. 5. Type 2 diabetes. 6. Hyperlipidemia. 7. Chronic obstructive pulmonary disease, on home O2. 8. Tobacco abuse. 9. Frequent falls. NOTE: This patient had demise at 1815 hours on 03/27/2018. HOSPITAL COURSE: This is a 52-year-old, male, very well-known to our service, who has a history of congestive heart failure with a low ejection fraction, COPD on home O2, history of coronary artery disease, diabetes, and hyperlipidemia, admitted on 03/16/2018. The history basically was taken from the ER reports. It looks like the patient was discharged from the hospital to [facility] a week prior to admission and now presented to the ER via EMS after a cardiac arrest. Apparently, the patient was talking to people in the [facility] when he had a sudden arrest. He was hooked up to an AED and we are not sure that he was shocked. The patient received treatment with epinephrine. He was intubated here in the ER and he was requiring vasopressors. He did not receive any sedation at that time, and he was admitted to the intensive care unit. Echocardiogram showed a dilated left ventricle with severe impairment of systolic function, ejection fraction, around 15 to 20 percent, significant pulmonary hypertension, and elevated right atrial pressure. Multiple studies were performed including extremity venous ultrasound that showed a nonoccluded DVT of the right common femoral vein. His initial x-ray showed an endotracheal tube and nasogastric tube, cardiomegaly, bilateral pleural effusion, and infiltrates and some atelectasis. Abdomen and pelvis CT scan upon admission showed no pulmonary emboli, cardiomegaly with pulmonary edema, and pleural effusion, bilateral atelectasis and infiltrates. The abdomen show fatty liver, a small amount of ascites, diverticulosis, body wall edema, and small umbilical hernia. We communicated with [facility] and we talked to Graciela, who was the night nurse at the time of the code. According to the nurse, Graciela, Mr. Saini was talking to the [employer] when he asked for help to be lifted up from the wheelchair to his bed. As soon as he got on his bed he just rolled back and he became unresponsive. The [employer] called the nurse immediately and when they went in Mr. Saini did not have any pulse and was not breathing and they activated a code. They applied AED and initial rhythm was asystole. Chest compression was resumed. It went on for 2 minutes before spontaneous circulation was achieved. Apparently after 2 minutes of resuscitation Mr. Saini opened his eyes, took some shallow breaths, and he had some rhythm, however, a minute later he had cardiac arrest again. AED showed asystole again and chest compressions were resumed and that went on for about 3 minutes until EMS arrived. When EMS arrived they were still doing CPR. Apparently EMS was out there with the patient for about another 10 minutes before putting him in the ambulance and transporting him to the hospital. The patient was in [facility] going through the code from 0048 hours until 0108 hours when EMS arrived. It looks like EMS also spent about 10 minutes with the patient, and as documented in the hospital note, the first time the patient was seen by a provider was 0125 hours. He was placed on antibiotics. Cardiology Department evaluated this patient as well as Pulmonary Department. Neurology Department also evaluated this patient at the beginning and they stated that this patient had global encephalopathy with diminished brain stem reflexes and likely anoxic brain injury, which is likely irreversible. They asked for an EEG as well that showed abnormal routine EEG due to diffuse alpha rhythm with generalized periodic epileptiform discharges suggestive of cortical irritability and pauses, epileptogenic potential, diffuse alpha rhythm is suggestive of alpha in the right clinical context. No definite electrographic seizures were seen during the study. So basically, we continued with supportive measures. He was placed on pressors, on diuretics, and antibiotics. We continued with some of his home medications, like levothyroxine but the patient was no recovering. Unfortunately, this patient had anoxic brain injury that was likely irreversible. While still there, no changes at all during the course of his hospitalization. We continued with ventilatory support, antibiotics, and at some point the family decided to put this patient DNR level 1. Today, 03/27/2018 the family decided to extubate this patient. The patient was extubated around 1740 hours and the patient had demise at 1815 hours. cc: Evan Prajapati MD
== END 2018-03-27 18:15 | disposition expired | DRG 207 ==
LOC: SUPCPDRO → ED 01:20 → EDIPHOLD 06:10 → SUATTDRO 06:10 → ICU 15:24
PROVIDERS: ATTEND Internal Medicine
CPT/HCPCS: 51702; 71010; 71045; 71275; 74177; 80053; 80101; 80202; 80301; 80307; 80324; 80345; 80346; 80353; 80358; 80361; 80365; 81001; 82310; 82550; 82553; 82805; 82948; 83036; 83735; 83880; 83992; 84100; 84484; 85025; 85027; 85610; 85730; 87040; 87070; 87088; 87205; 89220; 93005; 93306; 93970; 94003; 94640; 94761; 94762; 95816; 96365; 96366; 96372; 96375; 96376; 99285; 99291; A9270; C8929; C9113; G0431; G0434; G0479; G0480; J1265; J1650; J1815; J1940; J1953; J2185; J2270; J3370; J7030; J7040; J7050; Q9957; Q9967; S0164; XXXXX